=== PATIENT | male | born 1945 | race Caucasian/White ===

== ENCOUNTER 2017-02-18 07:11 | Day surgery (SDC) | payer MEDICARE, BC ==
[~2017-02-18 07:11] MED LIST: Acetaminophen TAB* 325 MG PO PRN; Buffered Lidocaine 1% SYRIN* 5 ML/SYR SYRINGE INTRADERM ONE
[2017-02-18] MEDS ORDERED: fentaNYL* 50 MCG/ML 2 ML VIAL (100 MCG VIAL) ONE (08:53)
[2017-02-18] MEDS ORDERED: Midazolam* 1 MG/ML 2 ML VIAL (2 MG) ONE ×2 (08:53→09:35)
[2017-02-18 10:02] VITALS: BP 153/70
[2017-02-18] MEDS ORDERED: Cyclopentolate 1% OPTH.SOL* 2 ML BTL ONE (12:13)
[2017-02-18] MEDS ORDERED: Lidocaine 1% MPF* 2 ML VIAL ONE (12:13)
[2017-02-18] MEDS ORDERED: acetaZOLAMIDE TAB* 250 MG ONE (12:13)
[2017-02-18] MEDS ORDERED: Flurbiprofen 0.03% OPTH.SOL* 2.5 ML BTL ONE (12:13)
[2017-02-18] MEDS ORDERED: Povidone Iodine 5% OPTH* 30 ML BTL ONE (12:14)
[2017-02-18] MEDS ORDERED: Lidocaine 2% EPI 1:200000 MPF* 20 ML VIAL ONE (12:14)
[2017-02-18] MEDS ORDERED: Phenylephrine 2.5% OPTH.SOL* 2 ML BTL ONE (12:14)
[2017-02-18] MEDS ORDERED: Neomycin/Polymy/Dex OPTH.SUSP* MAXITROL 0.1% 5 ML ONE (12:14)
[2017-02-18] MEDS ORDERED: Proparacaine 0.5% OPHTH.SOL* 15 ML BTL ONE (12:14)
--- NOTE | 2017-02-18 13:53 | OP ---
OPERATIVE NOTE: DATE OF OPERATION: 02/18/17 DATE OF : 49 SURGEON: Dominguez Gipson MD PREOPERATIVE DIAGNOSIS: Cataract, right eye. POSTOPERATIVE DIAGNOSIS: Cataract, right eye. OPERATIVE PROCEDURE: Phacoemulsification, right eye with IOL. PROCEDURE: The patient was brought to the operating room after being given 1/2% Alcaine with epinep hrine drops in the preoperative area. The eye was prepped and draped in the usual sterile fashion. Sterile drape and eyelid speculum were placed. Again, topical 1/2% Alcaine with epinephrine was giv en. A paracentesis incision was made at the 9 o'clock position with the No.75 blade. Clear cornea incision 2.2 x 2.2-mm was created at the 12 o'clock position starting at the anterior limbus using t he 2.2-mm keratome. The anterior chamber was irrigated with 0.4 mL of 1% non-preservative intracame ral lidocaine and filled with DisCoVisc. A capsulorrhexis was completed using the cystotome and the Utrata forceps. Hydrodissection was performed with balanced salt solution. The lens nucleus was re moved with the Phacoemulsification handpiece without incident. Cortex was removed with the irrigati on-aspiration handpiece. The capsular bag was re-inflated using DisCoVisc and an [id number] 17-diopter implant was inserted with the shooter. The irrigation-aspiration handpiece was used to remove all re sidual DisCoVisc. The eye was refilled with balanced salt solution and the wound checked and found to be watertight. Topical Maxitrol drops were given. [id number]/[facility] #: [id number]
== END 2017-02-18 10:11 | disposition home or self-care (01) ==
LOC: OREAST 07:11
PROVIDERS: ATTEND Specialist
DX: H25.811 Combined forms of age-related cataract, right eye (principal); E10.9 Type 1 diabetes mellitus without complications; K21.9 Gastro-esophageal reflux disease without esophagitis; M81.0 Age-related osteoporosis without current pathological fracture; F31.9 Bipolar disorder, unspecified; E78.00 Pure hypercholesterolemia, unspecified; F41.9 Anxiety disorder, unspecified; Z87.891 Personal history of nicotine dependence
CPT/HCPCS: A9270-GY; J2250; J3010; V2632

== ENCOUNTER 2018-08-14 18:35 | Inpatient (IN) | payer MEDICARE, BC ==
--- OUTSIDE RECORDS SUMMARY | 2018-08-14 19:03 | XMS REPORT | Continuity of Care Document ---
:1945 External Reference #:[id number] Author Name Diann Carrizales O.D. Address [address] [place] [address] Care Team Providers Name Role Phone Jesús Lin M.D. 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 Active mellitus Note: Onset: 12/20/2015 Gastroesophageal reflux disease Dominguez Gipson M.D. 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 Active Onset: 12/20/2015 Anxiety Dominguez Gipson M.D. Active Onset: 12/20/2015 Depressive disorder Dominguez Gipson M.D. Active Onset: 12/20/2015 Combined form of senile cataract Dominguez Gipson M.D. 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 Atorvastatin Active Tablets 40mg Law, Calcium Tamela Espinosa Diltiazem HCL ER Active Caps ER 120mg Unknown Coated Beads / 24HR Humalog Active Solution 100Unit/M Unknown /0000 L Viagra Active Tablets 100mg Unknown /0000 Methylphenidate Active Tablets 20mg Unknown HCL /0000 Olanzapine Active Tablets 5mg Take One Unknown /0000 Tablet By Mouth AT Bedtime as Needed Ziprasidone HCL Active Capsules 60mg Take One Unknown /0000 Capsule By Mouth Twice A Day Androgel Pump Active Gel 20.25mg/A Unknown /0000 ct (1.62%) Bupropion HCL ER Active Tablets ER 300mg Take One Unknown (XL) /0000 24HR Tablet By Mouth Every Morning as Directed Multi Vitamin 00 Active Tablets Unknown Daily /0000 Januvia Active Tablets 50mg Take One Unknown /0000 Tablet By Mouth Every Day Hydrochlorothiazid Active Tablets 25mg Unknown e /0000 Ciprofloxacin HCL 02/10 Hx Solution 0.3% 5ml instill Dominguez Jara Patricia one drop Claudia Gipson in the M.D. 03/01 right eye /2016 three times a day, start the day before surgery Ilevro 02/10 Hx Suspension 0.3% 3ml 1 drop Dominguez Jara Right eye Mooo, - daily M.D. 05/02 Prednisolone 02/10 Hx Suspension 1% 10ml 1 drop Dominguez Jara Right eye Arleo, - daily M.D. 04/30 Hydrocodone-Acetam Hx Tablets 5-325mg Unknown inophen /0000 - 08/30 Fluoxetine HCL Hx Capsules 20mg Unknown /0000 - 07/12 Immunizations Description No Information Available Vital Signs Description No Information Available Results Description No Information Available Procedures Date Code Description Status 09/01/2017 17042 Scanning Computerized Opthalmic Diagnostic Posterior Seg Completed Retina 09/01/2017 75392 Est Patient Intermediate Exam Completed 02/18/2017 13341 Extracapsular Cataract Extraction W/Intraocular Lens Completed 02/10/2017 20835 Ophthalmic Biometry Completed 02/10/2017 74132 Scanning Computerized Opthalmic Diagnostic Posterior Seg Completed Retina 02/06/2017 83429 Est Patient Comprehensive Exam Completed 07/15/2016 47082 Scanning Computerized Opthalmic Diagnostic Posterior Seg Completed Retina 07/15/2016 00452 Est Patient Comprehensive Exam Completed 12/20/2015 77556 Scanning Computerized Opthalmic Diagnostic Posterior Seg Completed Retina 12/20/2015 53169 Est Patient Comprehensive Exam Completed 12/04/2014 14438 Scanning Computerized Opthalmic Diagnostic Posterior Seg Completed Retina 12/04/2014 96565 Est Patient Comprehensive Exam Completed 05/16/2014 04490 Est Patient Comprehensive Exam Completed 05/16/2014 86050 Determination Of Refractive State Completed 10/31/2013 97095 Scanning Computerized Opthalmic Diagnostic Posterior Seg Completed Retina 10/31/2013 37520 Est Patient Comprehensive Exam Completed 10/01/2012 63310 Scanning Computerized Opthalmic Diagnostic Posterior Seg Completed Retina 10/01/2012 04350 Est Patient Comprehensive Exam Completed 09/12/2011 18792 Scanning Computerized Opthalmic Diagnostic Posterior Seg Completed Retina 09/12/2011 07090 Est Patient Comprehensive Exam Completed 02/05/2011 89835 Est Patient Intermediate Exam Completed 07/25/2010 90590 Scanning Laser W/Interp And Report Completed 07/25/2010 92781 Determination Of Refractive State Completed 07/25/2010 19508 Est Patient Comprehensive Exam Completed 12/24/2009 54113 Visual Field Exam Extended Completed 12/17/2009 05081 Est Patient Comprehensive Exam Completed 12/17/2009 04051 Determination Of Refractive State Completed 12/17/2009 86387 Fundus Photography With Interpretation And Report Completed 06/12/2009 92027 Scanning Laser W/Interp And Report Completed 06/12/2009 10566 Determination Of Refractive State Completed 06/12/2009 26825 Est Patient Intermediate Exam Completed 12/07/2008 32183 Fundus Photography With Interpretation And Report Completed 12/07/2008 50463 Determination Of Refractive State Completed 12/07/2008 66271 Est Patient Comprehensive Exam Completed 06/09/2008 94623 Scanning Laser W/Interp And Report Completed 06/09/2008 96010 Est Patient Intermediate Exam Completed 11/24/2007 32541 Determination Of Refractive State Completed 11/24/2007 29285 Est Patient Intermediate Exam Completed 07/09/2007 54643 Est Patient Intermediate Exam Completed 07/09/2007 76677 Scanning Laser W/Interp And Report Completed 03/09/2007 66220 Est Patient Comprehensive Exam Completed 10/13/2006 53605 Est Patient Intermediate Exam Completed 05/28/2006 98513 Fundus Photography With Interpretation And Report Completed 05/28/2006 04468 Est Patient Intermediate Exam Completed 12/26/2005 71346 Rescheduled Appointment Completed 07/01/2005 54732 Est Patient Comprehensive Exam Completed 12/27/2004 56997 Determination Of Refractive State Completed 12/27/2004 76978 Est Patient Intermediate Exam Completed 06/14/2004 01222 Determination Of Refractive State Completed 06/14/2004 87113 Est Patient Comprehensive Exam Completed 04/26/2004 93303 Est Patient Intermediate Exam Completed 12/19/2003 51373 Patient No Show For Appt Completed Encounters Type Date Location Provider Dx Diagnosis Office Visit 02/10/2017 Dominguez Rodriguez, H25.811 Combined forms of 12:45p , isabelle Rapp age-related cataract, right eye E10.3293 Type 1 diab with mild nonp rtnop without macular edema, bi Z96.1 Presence of intraocular lens Office Visit 12/29/2005 2:15p Dominguez Jara 250.50 Diabetes Marina/ MD Leonela, isabelle Gipson M.D. Ophthalmic Manifestations Type II Controlled 362.01 Background Diabetic Retinopathy Plan of Treatment Future Appointment(s):09/03/2018 1:00 pm - Dominguez Gipson M.D. at Dominguez Gipson MD, pc109/29/2017 - Diann Carrizales O.D.H43.813 Vitreous degeneration , bilateralComments:Smoking can increase the risk of developing or worsening any eye related disease, as well as affect your overall health. If you are a smoker, we strongly recommend that you quit.If you are not a smoker, we strongly recommend that you do not start. You have a Posterior Vitreous Detachment. Please read the pamphlet that was given to you. If you have any changes in your floaters or flashing lights, please contact this office.Follow up:09/03/2018 as sched w/ RA and pvd check/ OCT Mac You can expect to have your eyes dilated at your next visit. If Dr. Carrizales orders any additional testing, it may require extra time. We recommend that you bring sunglasses, as dilation drops often make you light sensitive until they wear off. We always recommend you bring someone to drive you home if you are uncomfortable driving with your eyes dilated. 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
[2018-08-14] MEDS ORDERED: NS 0.9% 1000 ML*IV.FLUID IV ONE (19:12)
[2018-08-14 21:06] LABS: ABS Basophils 0.1 10^3/ul (0-0.2); ABS Eosinophils 0 10^3/ul (0-0.6); ABS Lymphocytes 1.3 10^3/ul (1.0-4.8); ABS Monocytes 1.1 10^3/ul (0-0.8); ABS Neutrophils 12.6 10^3/ul (1.5-7.7); ABS Nucleated RBC 0 10^3/ul; Eosinophil % 0 % (0-6); Hematocrit 37 % (42-52); Hemoglobin 12.4 g/dl (14.0-18.0); Lymphocyte % 8.3 % (25-47); Mean Corpuscular HGB Conc 34 g/dl (31-36); Mean Corpuscular Hemoglobin 30 pg (27-31); Mean Corpuscular Volume 89 fL (80-94); Mean Platelet Volume 8.6 fL (7.4-10.4); Nucleated Red Blood Cells % 0; Platelet Count 198 10^3/ul (150-450); Red Blood Count 4.13 10^6/ul (4.00-5.40); Red Cell Distribution Width 14 % (10.5-15); White Blood Count 15.1 10^3/ul (3.5-10.8)
[2018-08-14 21:17] LABS: INR 1.1 (0.77-1.02)
[2018-08-14 21:23] LABS: EGFR Non-African American 30.2 (>60)
--- NOTE | 2018-08-14 22:57 | ED ---
Complex/Multi-Sys Presentation - HPI Summary HPI Summary: This patient is a 72 year [facility] with a chief complaint of fever, body aches, nausea and generalized weakness today. Patient was referred to ED by Dr. Betancourt, s/p prostate biopsy performed on 08/10/18. Fever reported at 101F. Pain is 4/10 in severity upon triage. Patient reports small amount of blood in urine from biopsy. Patient denies abdominal pain and SOB. PMHx of IDDM. - History Of Current Complaint Chief Complaint: EDFluSymptoms Time Seen by Provider: 08/14/18 22:52 Hx Obtained From: Patient Onset/Duration: Lasting Hours Timing: Constant Location: Pain At: - diffuse Associated Signs And Symptoms: Positive: Weakness, Fever, Other - body aches Related History: Other - prostate biopsy - Allergies/Home Medications Allergies/Adverse Reactions: Allergies Allergy/AdvReac Type Severity Reaction Status Date / Time aspirin Allergy Unknown Verified 08/15/18 00:24 Reaction Details Home Medications: Home Medications Tamsulosin HCl [Flomax] 0.4 mg PO DAILY 08/15/18 [History Confirmed 08/15/18] dilTIAZem HCl [Cartia Xt] 240 mg PO DAILY 08/15/18 [History Confirmed 08/15/18] hydroCHLOROthiazide [Hydrochlorothiazide] 1 cap PO DAILY 08/15/18 [History Confirmed 08/15/18] PMH/Surg Hx/FS Hx/Imm Hx Endocrine/Hematology History: Reports: Hx Diabetes - type 1 with insulin pump, Hx Anemia - slightly Cardiovascular History: Reports: Hx Hypertension, Other Cardiovascular Problems/ Disorders - high cholesterol GI History: Reports: Hx Gastroesophageal Reflux Disease History: Reports: Other Problems/Disorders - left nephrectomy 2008 Sensory History: Reports: Hx Cataracts - right eye, Hx Contacts or Glasses - glasses Denies: Hx Hearing Aid Opthamlomology History: Reports: Hx Cataracts - right eye, Hx Contacts or Glasses - glasses Neurological History: Reports: Other Neuro Impairments/Disorders - peripheral neuropathy Psychiatric History: Reports: Hx Anxiety, Hx Depression - Bipolar disorder - Cancer History Hx Chemotherapy: No - Surgical History Surgery Procedure, Year, and Place: tonsillectomy. right hand ganglion cyst removal 2003. right hip replacement 01/2006. left hip replacement 02/2013. left nephrectomy 07/2009. left hand trigger finger x3 01/2007 Hx Anesthesia Reactions: Yes - 2012- had difficulty coming out of anesthesia [facility] Infectious Disease History: No Infectious Disease History: Denies: Traveled Outside the [place] in Last 30 Days - Family History Known Family History: Positive: Hypertension - Social History Alcohol Use: None Substance Use Type: Reports: None Smoking Status (MU): Former Smoker Amount Used/How Often: smoked 20 years, 1/2 ppd or less Review of Systems Positive: Fever, Chills, Other - body aches Positive: Nausea Positive: hematuria All Other Systems Reviewed And Are Negative: Yes Physical Exam - Summary Physical Exam Summary: Appearance: Well-appearing, Well-nourished, lying in bed comfortably Skin: Warm, dry, no obvious rash Eyes: sclera anicteric, no conjunctival pallor ENT: mucous membranes moist, pharynx appears normal Neck: Supple, nontender Respiratory: Clear to auscultation, no signs of respiratory distress Cardiovascular: Normal S1, S2. No murmurs. Normal distal pulses in tibial and radial bilaterally. Abdomen: Soft, nontender, normal active bowel sounds present Musculoskeletal: Normal, Strength/ROM Intact Neurological: A&Ox3, awake and alert, mentation is normal, speech is fluent and appropriate Psychiatric: affect is normal, does not appear anxious or depressed Triage Information Reviewed: Yes Vital Signs On Initial Exam: Initial Vitals Temp Pulse Resp BP Pulse Ox 99.9 F 96 16 171/69 97 08/14/18 18:42 08/14/18 18:42 08/14/18 18:42 08/14/18 18:42 08/14/18 18:42 Vital Signs Reviewed: Yes Diagnostics - Vital Signs Vital Signs Temp Pulse Resp BP Pulse Ox 08/14/18 22:48 96 08/14/18 22:46 77 132/56 95 08/14/18 20:46 99.6 F 99 18 169/88 96 08/14/18 18:42 99.9 F 96 16 171/69 97 - Laboratory Lab Results: Lab Results 08/14/18 08/14/18 08/14/18 Range/Units 20:59 20:59 20:59 WBC 15.1 H (3.5-10.8) 10^3/ul RBC 4.13 (4.00-5.40) 10^6/ul Hgb 12.4 L (14.0-18.0) g/dl Hct 37 L (42-52) % MCV 89 (80-94) fL MCH 30 (27-31) pg MCHC 34 (31-36) g/dl RDW 14 (10.5-15) % Plt Count 198 (150-450) 10^3/ul MPV 8.6 (7.4-10.4) fL Neut % (Auto) 83.7 H (38-83) % Lymph % (Auto) 8.3 L (25-47) % Dubois % (Auto) 7.5 H (0-7) % Eos % (Auto) 0 (0-6) % Baso % (Auto) 0.5 (0-2) % Absolute Neuts (auto) 12.6 H (1.5-7.7) 10^3/ul Absolute Lymphs (auto) 1.3 (1.0-4.8) 10^3/ul Absolute Monos (auto) 1.1 H (0-0.8) 10^3/ul Absolute Eos (auto) 0 (0-0.6) 10^3/ul Absolute Basos (auto) 0.1 (0-0.2) 10^3/ul Absolute Nucleated RBC 0 10^3/ul Nucleated RBC % 0 INR (Anticoag Therapy) (0.77-1.02) Sodium 128 L (135-145) mmol/L Potassium 3.5 (3.5-5.0) mmol/L Chloride 92 L (101-111) mmol/L Carbon Dioxide 27 (22-32) mmol/L Anion Gap 9 (2-11) mmol/L BUN 31 H (6-24) mg/dL Creatinine 2.17 H (0.67-1.17) mg/dL Est GFR ( Amer) 36.6 (>60) Est GFR (Non-Af Amer) 30.2 (>60) BUN/Creatinine Ratio 14.3 (8-20) Glucose 340 H (70-100) mg/dL Lactic Acid 1.2 (0.5-2.0) mmol/L Calcium 9.6 (8.6-10.3) mg/dL Total Bilirubin 0.80 (0.2-1.0) mg/dL AST 31 (13-39) U/L ALT 36 (7-52) U/L Alkaline Phosphatase 72 (34-104) U/L Total Protein 6.9 (6.4-8.9) g/dL Albumin 3.9 (3.2-5.2) g/dL Globulin 3.0 (2-4) g/dL Albumin/Globulin Ratio 1.3 (1-3) 11/24/18 Range/Units 21:00 WBC (3.5-10.8) 10^3/ul RBC (4.00-5.40) 10^6/ul Hgb (14.0-18.0) g/dl Hct (42-52) % MCV (80-94) fL MCH (27-31) pg MCHC (31-36) g/dl RDW (10.5-15) % Plt Count (150-450) 10^3/ul MPV (7.4-10.4) fL Neut % (Auto) (38-83) % Lymph % (Auto) (25-47) % Dubois % (Auto) (0-7) % Eos % (Auto) (0-6) % Baso % (Auto) (0-2) % Absolute Neuts (auto) (1.5-7.7) 10^3/ul Absolute Lymphs (auto) (1.0-4.8) 10^3/ul Absolute Monos (auto) (0-0.8) 10^3/ul Absolute Eos (auto) (0-0.6) 10^3/ul Absolute Basos (auto) (0-0.2) 10^3/ul Absolute Nucleated RBC 10^3/ul Nucleated RBC % INR (Anticoag Therapy) 1.10 H (0.77-1.02) Sodium (135-145) mmol/L Potassium (3.5-5.0) mmol/L Chloride (101-111) mmol/L Carbon Dioxide (22-32) mmol/L Anion Gap (2-11) mmol/L BUN (6-24) mg/dL Creatinine (0.67-1.17) mg/dL Est GFR ( Amer) (>60) Est GFR (Non-Af Amer) (>60) BUN/Creatinine Ratio (8-20) Glucose (70-100) mg/dL Lactic Acid (0.5-2.0) mmol/L Calcium (8.6-10.3) mg/dL Total Bilirubin (0.2-1.0) mg/dL AST (13-39) U/L ALT (7-52) U/L Alkaline Phosphatase (34-104) U/L Total Protein (6.4-8.9) g/dL Albumin (3.2-5.2) g/dL Globulin (2-4) g/dL Albumin/Globulin Ratio (1-3) Result Diagrams: 08/15/18 05:03 08/15/18 05:03 Lab Statement: Any lab studies that have been ordered have been reviewed, and results considered in the medical decision making process. Complex Multi-Symp Course/Dx Course Of Treatment: 72 year old M presenting with fever, body aches, nausea and generalized weakness today. Patient was referred to ED by Dr. Betancourt, s/p prostate biopsy performed on 08/10/18. Fever reported at 101F. [2304] Case discussed with Dr. Betancourt, urology, who recommends admission by hospitalist and to obtain blood cultures prior to abx. Bloodwork reveals an elevated WBC of 15.1. UA is indicative of UTI. Patient is given IVF and Piperacillin. [2343 ] Case discussed with Dr. Peña, hospitalist, who agrees to admit. - Diagnoses Provider Diagnoses: UTI (urinary tract infection), Fever - Physician Notifications Discussed Care Of Patient With: Elijah Betancourt - urology Time Discussed With Above Provider: 23:04 Instructed by Provider To: Other - recommends admission by hospitatlist and to get blood cultures prior to abx Discharge - Sign-Out/Discharge Documenting (check all that apply): Patient Departure - admit - Discharge Plan Condition: Good Disposition: ADMITTED TO [facility] - Billing Disposition and Condition Condition: GOOD Disposition: Admitted to [facility] - Attestation Statements Document Initiated by Scribe: Yes Documenting Scribe: Maria De Jesus Gannon Provider For Whom Alex is Documenting (Include Credential): Kobe Zaldivar MD Scribe Attestation: Maria De Jesus Mo, scribed for Kobe Zaldivar MD on 08/15/18 at 2124. Scribe Documentation Reviewed: Yes Provider Attestation: The documentation as recorded by the scribe, Maria De Jesus Roetzer accurately reflects the service I personally performed and the decisions made by me, Kobe Zaldivar MD
[2018-08-14] MEDS ORDERED: Piperacillin/Tazobac ADVAN(*) 3.375 GM in NS 0.9% 100 ML* 100 ML IVPB ONE (23:15)
[2018-08-14 23:21] LABS: Urine Appearance Cloudy; Urine Blood 3+ (Negative); Urine Color Yellow; Urine Ketones Negative (Negative); Urine Protein Negative (Negative); Urine Red Blood Cell 3+(>10/hpf) (Absent); Urine Specific Gravity 1.015 (1.010-1.030); Urine Urobilinogen Negative (Negative); Urine White Blood Cell 3+(>20/hpf) (Absent)
[2018-08-14] MEDS ORDERED: HYDROcodone/ACETAMIN 5-325 MG* 1 TAB PO PRN (23:58)
[2018-08-14] MEDS ORDERED: OLANzapine TAB* 5 MG PO PRN (23:58)
[2018-08-15] MEDS ORDERED: Dextrose 50% Syringe 50 ML* 25 GM/50 ML SYRINGE IV PUSH PRN (00:02)
[2018-08-15] MEDS: NS 0.9% 1000 ML* 1,000 ML IV SCH ×3 (02:10→21:41)
[2018-08-15] MEDS: Piperacillin/Tazobac ADVAN(*) 3.375 GM in NS 0.9% 100 ML* 100 ML IVPB SCH ×3 (03:37→19:43)
[2018-08-15 05:18] LABS: ABS Basophils 0 10^3/ul (0-0.2); ABS Eosinophils 0 10^3/ul (0-0.6); ABS Lymphocytes 1.5 10^3/ul (1.0-4.8); ABS Monocytes 1.3 10^3/ul (0-0.8); ABS Nucleated RBC 0 10^3/ul; Eosinophil % 0.2 % (0-6); Hematocrit 35 % (42-52); Hemoglobin 11.7 g/dl (14.0-18.0); Mean Corpuscular HGB Conc 33 g/dl (31-36); Mean Corpuscular Hemoglobin 30 pg (27-31); Mean Corpuscular Volume 90 fL (80-94); Mean Platelet Volume 8.8 fL (7.4-10.4); Nucleated Red Blood Cells % 0; Platelet Count 169 10^3/ul (150-450); Red Blood Count 3.92 10^6/ul (4.00-5.40); Red Cell Distribution Width 14 % (10.5-15); White Blood Count 13.9 10^3/ul (3.5-10.8)
[2018-08-15 05:39] LABS: EGFR Non-African American 31.4 (>60)
[2018-08-15] MEDS: Heparin VIAL(*) 5000 UNITS/ML VIAL (FIVE THOUSAND) SUBCUT SCH ×3 (06:05→21:43)
--- NOTE | 2018-08-15 06:10 | ADMNOTE ---
Subjective Date of Service: 08/14/18 Interval History: code status full this is admission h/p hpi this is a 72 yr old wm with hx of bph with elevated psa 8-9 s/p prostate biopsy last was sent in by gu after he called and complained fever spike to 101 shaking chills diffuse body/joint ache flu like symptoms for the past 1.5 days-- -> was instructed to come in for eval by gu over the phone. 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 no htn/dm/cva/cad as well as family hx of prostate cancer Review of Systems - Measurements Intake and Output: Intake and Output Last 24 Hours 08/12/18 08/13/18 08/14/18 08/15/18 06:59 06:59 06:59 06:59 Intake Total 100 Output Total 300 Balance -200 Weight 220 lb Intake: IV Fluids 100 Output: Urine 300 - Review of Systems General Comments: pertinent as per hpi Objective Active Medications: Hydrocodone Bitart/Acetaminophen ([place] 5-325 Tab*) 1 tab PO Q4H PRN PRN Reason: PAIN Atorvastatin Calcium (Lipitor*) 40 mg PO QPM DINAH Bupropion HCl (Bupropion Xl*) 300 mg PO DAILY [facility] Dextrose (D50w Syringe 50 Ml*) 12.5 gm IV PUSH .FOR FS < 60 - SS PRN PRN Reason: FS < 60 Diltiazem HCl (Cardizem Cd Cap*) 120 mg PO DAILY [facility] Heparin Sodium (Porcine) (Heparin Vial(*)) 5,000 units SUBCUT Q8HR [facility] Sodium Chloride (Ns 0.9% 1000 Ml*) 1,000 mls @ 100 mls/hr IV PER RATE [facility] Last Admin: 08/15/18 02:10 Dose: 100 mls/hr Piperacillin Sod/Tazobactam (Sod 3.375 gm/ Sodium Chloride) 100 mls @ 25 mls/ hr IVPB Q8H [facility] Last Admin: 08/15/18 03:37 Dose: 25 mls/hr Influenza Virus Vaccine (Fluarix *Quad* *) 0.5 ml IM .ONCE ONE Stop: 08/15/18 09:01 Methylphenidate HCl (Ritalin Tab*) 20 mg PO QID [facility] Non-Formulary Medication (Testosterone [Androgel]) 3 applic TD DAILY [facility] Olanzapine (Zyprexa Tab*) 5 mg PO DAILY PRN PRN Reason: depression Sitagliptin Phosphate (Januvia (Nf)) 50 mg PO DAILY [facility] Ziprasidone (Geodon (Generic) *) 60 mg PO DAILY [facility] Vital Signs - 8 hr 08/14/18 08/14/18 08/14/18 22:46 22:48 23:33 Temperature Pulse Rate 77 Respiratory Rate Blood Pressure 132/56 130/59 (mmHg) O2 Sat by Pulse 95 96 Oximetry 08/14/18 08/14/18 08/15/18 23:40 23:41 00:00 Temperature 99.7 F Pulse Rate 75 72 68 Respiratory 12 Rate Blood Pressure 130/59 (mmHg) O2 Sat by Pulse 96 96 95 Oximetry 08/15/18 08/15/18 08/15/18 00:12 01:00 01:28 Temperature 98.8 F Pulse Rate 73 79 70 Respiratory 12 Rate Blood Pressure 130/59 (mmHg) O2 Sat by Pulse 95 97 98 Oximetry 08/15/18 08/15/18 08/15/18 01:38 01:48 03:20 Temperature 97.8 F 97.8 F Pulse Rate 69 80 Respiratory 18 18 16 Rate Blood Pressure 151/64 163/60 (mmHg) O2 Sat by Pulse 99 100 Oximetry Oxygen Devices in Use Now: None Appearance: nad Eyes: No Scleral Icterus, PERRLA Ears/Nose/Mouth/Throat: NL Teeth, Lips, Gums, Clear Oropharnyx, Mucous Membranes Moist Neck: NL Appearance and Movements; NL JVP, Trachea Midline, No Thyroid Enlargement, Masses Respiratory: Symmetrical Chest Expansion and Respiratory Effort, Clear to Auscultation Cardiovascular: NL Sounds; No Murmurs; No JVD, RRR Abdominal: NL Sounds; No Tenderness; No Distention, No Hepatosplenomegaly, - - obese abd Extremities: No Edema, - - able to raise ue and le againt gravity Skin: No Rash or Ulcers Neurological: Alert and Oriented x 3, NL Sensation, NL Muscle Strength and Tone - ekg ns no acute st t change Result Diagrams: 08/15/18 05:03 08/15/18 05:03 Additional Lab and Data: Lab Results 08/14/18 08/14/18 08/14/18 Range/Units 20:59 20:59 20:59 WBC 15.1 H (3.5-10.8) 10^3/ul RBC 4.13 (4.00-5.40) 10^6/ul Hgb 12.4 L (14.0-18.0) g/dl Hct 37 L (42-52) % MCV 89 (80-94) fL MCH 30 (27-31) pg MCHC 34 (31-36) g/dl RDW 14 (10.5-15) % Plt Count 198 (150-450) 10^3/ul MPV 8.6 (7.4-10.4) fL Neut % (Auto) 83.7 H (38-83) % Lymph % (Auto) 8.3 L (25-47) % [place] % (Auto) 7.5 H (0-7) % Eos % (Auto) 0 (0-6) % Baso % (Auto) 0.5 (0-2) % Absolute Neuts (auto) 12.6 H (1.5-7.7) 10^3/ul Absolute Lymphs (auto) 1.3 (1.0-4.8) 10^3/ul Absolute Monos (auto) 1.1 H (0-0.8) 10^3/ul Absolute Eos (auto) 0 (0-0.6) 10^3/ul Absolute Basos (auto) 0.1 (0-0.2) 10^3/ul Absolute Nucleated RBC 0 10^3/ul Nucleated RBC % 0 INR (Anticoag Therapy) (0.77-1.02) Sodium 128 L (135-145) mmol/L Potassium 3.5 (3.5-5.0) mmol/L Chloride 92 L (101-111) mmol/L Carbon Dioxide 27 (22-32) mmol/L Anion Gap 9 (2-11) mmol/L BUN 31 H (6-24) mg/dL Creatinine 2.17 H (0.67-1.17) mg/dL Est GFR ( Amer) 36.6 (>60) Est GFR (Non-Af Amer) 30.2 (>60) BUN/Creatinine Ratio 14.3 (8-20) Glucose 340 H (70-100) mg/dL Lactic Acid 1.2 (0.5-2.0) mmol/L Calcium 9.6 (8.6-10.3) mg/dL Total Bilirubin 0.80 (0.2-1.0) mg/dL AST 31 (13-39) U/L ALT 36 (7-52) U/L Alkaline Phosphatase 72 (34-104) U/L Total Protein 6.9 (6.4-8.9) g/dL Albumin 3.9 (3.2-5.2) g/dL Globulin 3.0 (2-4) g/dL Albumin/Globulin Ratio 1.3 (1-3) 08/14/18 Range/Units 21:00 WBC (3.5-10.8) 10^3/ul RBC (4.00-5.40) 10^6/ul Hgb (14.0-18.0) g/dl Hct (42-52) % MCV (80-94) fL MCH (27-31) pg MCHC (31-36) g/dl RDW (10.5-15) % Plt Count (150-450) 10^3/ul MPV (7.4-10.4) fL Neut % (Auto) (38-83) % Lymph % (Auto) (25-47) % [place] % (Auto) (0-7) % Eos % (Auto) (0-6) % Baso % (Auto) (0-2) % Absolute Neuts (auto) (1.5-7.7) 10^3/ul Absolute Lymphs (auto) (1.0-4.8) 10^3/ul Absolute Monos (auto) (0-0.8) 10^3/ul Absolute Eos (auto) (0-0.6) 10^3/ul Absolute Basos (auto) (0-0.2) 10^3/ul Absolute Nucleated RBC 10^3/ul Nucleated RBC % INR (Anticoag Therapy) 1.10 H (0.77-1.02) Sodium (135-145) mmol/L Potassium (3.5-5.0) mmol/L Chloride (101-111) mmol/L Carbon Dioxide (22-32) mmol/L Anion Gap (2-11) mmol/L BUN (6-24) mg/dL Creatinine (0.67-1.17) mg/dL Est GFR ( Amer) (>60) Est GFR (Non-Af Amer) (>60) BUN/Creatinine Ratio (8-20) Glucose (70-100) mg/dL Lactic Acid (0.5-2.0) mmol/L Calcium (8.6-10.3) mg/dL Total Bilirubin (0.2-1.0) mg/dL AST (13-39) U/L ALT (7-52) U/L Alkaline Phosphatase (34-104) U/L Total Protein (6.4-8.9) g/dL Albumin (3.2-5.2) g/dL Globulin (2-4) g/dL Albumin/Globulin Ratio (1-3) Assess/Plan/Problems-Billing Assessment: this is a 72 yr old wm with hx of type i dm on insulin pump bph with elevated psa level 8-9 just got prostate biopsy last tue presented with flu like symptoms shaking chills body joint ache intial wbc is 15 got zosyn from er - Patient Problems (1) SIRS (systemic inflammatory response syndrome) Current Visit: Yes Status: Acute Code(s): R65.10 - SIRS OF NON-INFECTIOUS ORIGIN W/O ACUTE ORGAN DYSFUNCTION SNOMED Code(s): 380819786 Comment: zosyn while waiting for culture result ck flu a/b mrsa nare (2) UTI (urinary tract infection) Current Visit: Yes Status: Acute Comment: continue with zosyn while waiting for urine cx result (3) Type I diabetes mellitus Current Visit: Yes Status: Acute Comment: pt is on insulin pump + jenuvia continue outpt mgt ck a1c (4) Hyperlipidemia Current Visit: Yes Status: Acute Code(s): E78.5 - HYPERLIPIDEMIA, UNSPECIFIED SNOMED Code(s): 79412769 Comment: lft wnl ck lipid panel continue outpt med (5) Renal cancer Current Visit: Yes Status: Acute Comment: s/p nephrectomy moniter at this point (6) Fever Current Visit: Yes Status: Acute Code(s): R50.9 - FEVER, UNSPECIFIED SNOMED Code(s): 382954661 Comment: prn tylenol (7) Androgen deficiency Current Visit: Yes Status: Acute Code(s): E29.1 - TESTICULAR HYPOFUNCTION SNOMED Code(s): 35408881 Comment: continue testostone therapy
[2018-08-15] MEDS ORDERED: Insulin LISPRO* 1 UNITS UNIT SUBCUT SCH (07:30)
[2018-08-15] MEDS: Ziprasidone * 20 MG CAP (generic Geodon) PO SCH (08:18)
[2018-08-15] MEDS: CMCS: Sitagliptin (NF) 50 MG TAB PO SCH (08:18)
[2018-08-15] MEDS: Methylphenidate TAB* 10 MG PO SCH ×4 (08:19→18:31)
[2018-08-15] MEDS: BuPROPion XL* 300 MG TAB.XL PO SCH (08:19)
[2018-08-15] MEDS: Diltiazem CD CAP* 240 MG PO SCH (08:19)
[2018-08-15] MEDS ORDERED: Tamsulosin CAP* 0.4 MG PO SCH ×2 (09:00→21:00)
[2018-08-15] MEDS ORDERED: TESTOSTERONE TD SCH (09:00)
[2018-08-15] MEDS ORDERED: Diltiazem CD CAP* 120 MG PO SCH (09:00)
[2018-08-15 09:11] LABS: EGFR Non-African American 30.1 (>60)
--- NOTE | 2018-08-15 10:32 | PN ---
Subjective - Subjective Reason for Note: Progress Note History: I have reviewed with the patient, the electronic medical record and with Dr. Elijah Betancourt his presentation. He has a single kidney and diabetic nephropathy. He has a raised PSA and had a prostate bx 08/10/2018 - covered with levofloxacin and gentamicin. On 08/13/2018 he developed a fever and chills. He was admitted overnight and started on piperacillin/tazobactam. Overnight he had pain in his bladder and inability to void. He has been able to void this morning. His fever has gone overnight. He is feeling improved, though his appetite has not recovered. He has marked insulin resistance with glucose being in the 300s. Active Problems: Active Problems Acute on chronic renal failure (Acute) N17.9, N18.9 Acute prostatitis (Acute) N41.0 Fever (Acute) R50.9 prn tylenol Primary prostate adenocarcinoma (Acute) C61 SIRS (systemic inflammatory response syndrome) (Acute) R65.10 zosyn while waiting for culture result ck flu a/b mrsa nare UTI (urinary tract infection) (Acute) continue with zosyn while waiting for urine cx result Uncontrolled type 1 diabetes mellitus (Acute) E10.65 ADHD (attention deficit hyperactivity disorder) (Chronic) Androgen deficiency (Chronic) E29.1 continue testostone therapy Background diabetic retinopathy (Chronic) E11.3299 Controlled depression (Chronic) F32.9 Hyperlipidemia (Chronic) E78.5 lft wnl ck lipid panel continue outpt med Insulin pump in place (Chronic) Z96.41 Overweight (BMI 25.0-29.9) (Chronic) E66.3 PVD (peripheral vascular disease) (Chronic) I73.9 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) E10.29, R80.9 Renal cancer (Chronic) s/p nephrectomy moniter at this point Stage 3 chronic kidney disease (Chronic) N18.3 Type I diabetes mellitus (Chronic) pt is on insulin pump + jenuvia continue outpt mgt ck a1c Current Medications: Current Medications Hydrocodone Bitart/Acetaminophen ([place] 5-325 Tab*) 1 tab PO Q4H PRN PRN Reason: PAIN Atorvastatin Calcium (Lipitor*) 40 mg PO QPM [facility]IN[facility] Bupropion HCl (Bupropion Xl*) 300 mg PO DAILY [facility] Last Admin: 08/15/18 08:19 Dose: 300 mg Dextrose (D50w Syringe 50 Ml*) 12.5 gm IV PUSH .FOR FS < 60 - SS PRN PRN Reason: FS < 60 Diltiazem HCl (Cardizem Cd Cap*) 240 mg PO DAILY [facility] Last Admin: 08/15/18 08:19 Dose: 240 mg Heparin Sodium (Porcine) (Heparin Vial(*)) 5,000 units SUBCUT Q8HR [facility] Last Admin: 08/15/18 06:05 Dose: 5,000 units Sodium Chloride (Ns 0.9% 1000 Ml*) 1,000 mls @ 100 mls/hr IV PER RATE [facility] Last Admin: 08/15/18 02:10 Dose: 100 mls/hr Piperacillin Sod/Tazobactam (Sod 3.375 gm/ Sodium Chloride) 100 mls @ 25 mls/ hr IVPB Q8H [facility] Last Admin: 08/15/18 03:37 Dose: 25 mls/hr Methylphenidate HCl (Ritalin Tab*) 20 mg PO QID [facility] Last Admin: 08/15/18 08:19 Dose: 20 mg Non-Formulary Medication (Testosterone [Androgel]) 3 applic TD DAILY [facility] Olanzapine (Zyprexa Tab*) 5 mg PO DAILY PRN PRN Reason: depression Sitagliptin Phosphate (Januvia (Nf)) 50 mg PO DAILY [facility] Last Admin: 08/15/18 08:18 Dose: 50 mg Tamsulosin HCl (Flomax Cap*) 0.4 mg PO BEDTIME [facility] Ziprasidone (Geodon (Generic) *) 60 mg PO DAILY [facility] Last Admin: 08/15/18 08:18 Dose: 60 mg - Review of Systems Constitutional Symptoms: Yes: Fever, Night Sweats Dermatology: Rash: No Pulmonary: Negative: Cough, Sputum, Respiratory Distress, Shortness of Breath Cardiology: Negative: Chest Pain, Shortness of Breath, Palpitations, Swelling of Ankles Gastroenterology: Positive: Anorexia Negative: Abdominal Pain, Nausea, Vomiting, Change in Bowel Habits - BM overnight Genital - Urinary: Positive: Dysuria, Other - acute prostatitis Neurology: Negative: Headache Home Medications: Home Medications Medication Instructions Recorded Confirmed Type Atorvastatin* [Lipitor*] 40 mg PO QPM 08/21/16 08/15/18 History BuPROPion XL* [Bupropion XL*] 300 mg PO DAILY 08/21/16 08/15/18 History Insulin LISPRO* [HumaLOG*] 1 unit SUBCUT SEE INSTRUCTIONS 08/21/16 08/15/18 History Methylphenidate TAB* [Ritalin TAB*] 20 mg PO QID 08/21/16 08/15/18 History OLANzapine TAB* [ZyPREXA TAB*] 5 mg PO DAILY PRN 08/21/16 08/15/18 History Sildenafil (NF) [Viagra (NF)] 100 mg PO BID PRN 08/21/16 08/15/18 History Testosterone [Androgel] 3 applic TD DAILY 08/21/16 08/15/18 History Ziprasidone CAP* [Geodon CAP*] 60 mg PO DAILY 08/21/16 08/15/18 History Sitagliptin (NF) [Januvia (NF)] 50 mg PO DAILY 02/13/17 08/15/18 History Tamsulosin HCl [Flomax] 0.4 mg PO DAILY 08/15/18 08/15/18 History dilTIAZem HCl [Cartia Xt] 240 mg PO DAILY 08/15/18 08/15/18 History hydroCHLOROthiazide 1 cap PO DAILY 08/15/18 08/15/18 History [Hydrochlorothiazide] Allergies: Allergies Allergy/AdvReac Type Severity Reaction Status Date / Time aspirin Allergy Unknown Verified 08/15/18 00:24 Reaction Details Objective - Vital Signs Vital Signs: Vital Signs 08/14/18 08/14/18 08/14/18 18:42 20:46 22:46 Temperature 99.9 F 99.6 F Pulse Rate 96 99 77 Respiratory 16 18 Rate Blood Pressure 171/69 169/88 132/56 (mmHg) O2 Sat by Pulse 97 96 95 Oximetry 08/14/18 08/14/18 08/14/18 22:48 23:33 23:40 Temperature 99.7 F Pulse Rate 75 Respiratory 12 Rate Blood Pressure 130/59 130/59 (mmHg) O2 Sat by Pulse 96 96 Oximetry 08/14/18 08/15/18 08/15/18 23:41 00:00 00:12 Temperature Pulse Rate 72 68 73 Respiratory Rate Blood Pressure (mmHg) O2 Sat by Pulse 96 95 95 Oximetry 08/15/18 08/15/18 08/15/18 01:00 01:28 01:38 Temperature 98.8 F 97.8 F Pulse Rate 79 70 69 Respiratory 12 18 Rate Blood Pressure 130/59 151/64 (mmHg) O2 Sat by Pulse 97 98 99 Oximetry 08/15/18 08/15/18 08/15/18 01:48 03:20 07:59 Temperature 97.8 F 99.8 F Pulse Rate 80 53 Respiratory 18 16 16 Rate Blood Pressure 163/60 164/80 (mmHg) O2 Sat by Pulse 100 97 Oximetry 08/15/18 08:00 Temperature Pulse Rate Respiratory 16 Rate Blood Pressure (mmHg) O2 Sat by Pulse 97 Oximetry - Intake and Output Intake and Output: Intake & Output 08/12/18 08/13/18 08/14/18 08/15/18 11:59 11:59 11:59 11:59 Intake Total 400 Output Total 300 Balance 100 Weight 220 lb Intake: IV Fluids 100 IVPB 100 ABX - ZOSYN 100 Oral 200 Output: Urine 300 ADLs: Meal Record Start: 08/15/18 00: 44 Freq: Status: Active Protocol: Created 08/15/18 00:44 System (Rec: 08/15/18 00:44 System [id number]) Document 08/15/18 09:49 [id number] (Rec: 08/15/18 09:50 [id number]) Intake and Output Start: 08/14/18 18: 46 Freq: Status: Active Protocol: Created 08/14/18 18:46 System (Rec: 08/14/18 18:46 System [id number]) Intake and Output Start: 08/15/18 00: 44 Freq: DAILY@0600,1400,2200 Status: Active Protocol: Created 08/15/18 00:44 System (Rec: 08/15/18 00:44 System [id number]) Document 08/15/18 03:28 [id number] (Rec: 08/15/18 03:28 [id number]) - Physical Exam General Physical Exam Comment: Warm and well perfused, in no acute distress. He has a tachycardia, but is otherwise hemodynamically stable. Feet - no ulcers , callouses or infections General: No Cyanosis, No Anemia, No Jaundice, No Clubbing Skin: Normal: Rash Lungs and Chest: Yes: Chest Expansion Full, Chest Expansion Symetrica, Percussion Note Resonant, Vessicular Breath Sounds. No: Crackles, Wheezes Heart Rate and Rhythm: Regular JVP: Not Elevated Additional Cardiovascular: Yes: Normal Heart Sounds. No: Heart Murmur, Pedal Edema Abdominal Exam: Yes: Soft, Abdominal Tenderness - suprapubic and iliac regions, Bowel Sounds Present. No: Distention, Abdominal Mass, Hepatomegaly, Guarding, Rebound Tenderness - Extremities Cranial Nerves II-XII Intact: Yes Limbs: Normal Power - Neuro Orientation: A/O x3 Speech: Normal Results - Results Lab Results: Laboratory Results - last 24 hr 08/14/18 08/14/18 08/14/18 20:59 20:59 20:59 WBC 15.1 H RBC 4.13 Hgb 12.4 L Hct 37 L MCV 89 MCH 30 MCHC 34 RDW 14 Plt Count 198 MPV 8.6 Neut % (Auto) 83.7 H Lymph % (Auto) 8.3 L [place] % (Auto) 7.5 H Eos % (Auto) 0 Baso % (Auto) 0.5 Absolute Neuts (auto) 12.6 H Absolute Lymphs (auto) 1.3 Absolute Monos (auto) 1.1 H Absolute Eos (auto) 0 Absolute Basos (auto) 0.1 Absolute Nucleated RBC 0 Nucleated RBC % 0 INR (Anticoag Therapy) APTT Sodium 128 L Potassium 3.5 Chloride 92 L Carbon Dioxide 27 Anion Gap 9 BUN 31 H Creatinine 2.17 H Est GFR ( Amer) 36.6 Est GFR (Non-Af Amer) 30.2 BUN/Creatinine Ratio 14.3 Glucose 340 H Hemoglobin A1c Lactic Acid 1.2 Calcium 9.6 Total Bilirubin 0.80 AST 31 ALT 36 Alkaline Phosphatase 72 Total Protein 6.9 Albumin 3.9 Globulin 3.0 Albumin/Globulin Ratio 1.3 Triglycerides Cholesterol LDL Cholesterol HDL Cholesterol Urine Color Urine Appearance Urine pH Ur Specific [place] Urine Protein Urine Ketones Urine Blood Urine Nitrate Urine Bilirubin Urine Urobilinogen Ur Leukocyte Esterase Urine WBC (Auto) Urine RBC (Auto) Ur Squamous Epith Cells Urine Bacteria Urine Glucose Urine Ascorbic Acid Influenza A (Rapid) Influenza B (Rapid) 08/14/18 08/14/18 08/15/18 21:00 23:06 01:17 WBC RBC Hgb Hct MCV MCH MCHC RDW Plt Count MPV Neut % (Auto) Lymph % (Auto) [place] % (Auto) Eos % (Auto) Baso % (Auto) Absolute Neuts (auto) Absolute Lymphs (auto) Absolute Monos (auto) Absolute Eos (auto) Absolute Basos (auto) Absolute Nucleated RBC Nucleated RBC % INR (Anticoag Therapy) 1.10 H APTT Sodium 131 L Potassium Chloride Carbon Dioxide Anion Gap BUN Creatinine Est GFR ( Amer) Est GFR (Non-Af Amer) BUN/Creatinine Ratio Glucose Hemoglobin A1c Lactic Acid Calcium Total Bilirubin AST ALT Alkaline Phosphatase Total Protein Albumin Globulin Albumin/Globulin Ratio Triglycerides Cholesterol LDL Cholesterol HDL Cholesterol Urine Color Yellow Urine Appearance Cloudy Urine pH 5.0 Ur Specific [place] 1.015 Urine Protein Negative Urine Ketones Negative Urine Blood 3+ A Urine Nitrate Negative Urine Bilirubin Negative Urine Urobilinogen Negative Ur Leukocyte Esterase 1+ A Urine WBC (Auto) 3+(>20/hpf) A Urine RBC (Auto) 3+(>10/hpf) A Ur Squamous Epith Cells Present A Urine Bacteria 1+ A Urine Glucose 3+(>=500 mg/dl) A Urine Ascorbic Acid * A Influenza A (Rapid) Influenza B (Rapid) 08/15/18 08/15/18 08/15/18 05:02 05:03 05:03 WBC 13.9 H RBC 3.92 L Hgb 11.7 L Hct 35 L MCV 90 MCH 30 MCHC 33 RDW 14 Plt Count 169 MPV 8.8 Neut % (Auto) 79.5 Lymph % (Auto) 11.0 L [place] % (Auto) 9.1 H Eos % (Auto) 0.2 Baso % (Auto) 0.2 Absolute Neuts (auto) 11.0 H Absolute Lymphs (auto) 1.5 Absolute Monos (auto) 1.3 H Absolute Eos (auto) 0 Absolute Basos (auto) 0 Absolute Nucleated RBC 0 Nucleated RBC % 0 INR (Anticoag Therapy) APTT Sodium 135 Potassium 3.9 Chloride 100 L Carbon Dioxide 27 Anion Gap 8 BUN 28 H Creatinine 2.18 H Est GFR ( Amer) 36.4 Est GFR (Non-Af Amer) 30.1 BUN/Creatinine Ratio 12.8 Glucose 305 H Hemoglobin A1c 7.7 H Lactic Acid Calcium 9.1 Total Bilirubin 0.90 AST 31 ALT 36 Alkaline Phosphatase 78 Total Protein 6.0 L Albumin 3.6 Globulin 2.4 Albumin/Globulin Ratio 1.5 Triglycerides 85 Cholesterol 118 LDL Cholesterol 51 HDL Cholesterol 49.7 Urine Color Urine Appearance Urine pH Ur Specific [place] Urine Protein Urine Ketones Urine Blood Urine Nitrate Urine Bilirubin Urine Urobilinogen Ur Leukocyte Esterase Urine WBC (Auto) Urine RBC (Auto) Ur Squamous Epith Cells Urine Bacteria Urine Glucose Urine Ascorbic Acid Influenza A (Rapid) Influenza B (Rapid) 08/15/18 08/15/18 08/15/18 05:03 05:03 06:43 WBC RBC Hgb Hct MCV MCH MCHC RDW Plt Count MPV Neut % (Auto) Lymph % (Auto) [place] % (Auto) Eos % (Auto) Baso % (Auto) Absolute Neuts (auto) Absolute Lymphs (auto) Absolute Monos (auto) Absolute Eos (auto) Absolute Basos (auto) Absolute Nucleated RBC Nucleated RBC % INR (Anticoag Therapy) APTT 28.0 Sodium 133 L Potassium 3.9 Chloride 100 L Carbon Dioxide 26 Anion Gap 7 BUN 28 H Creatinine 2.10 H Est GFR ( Amer) 38.0 Est GFR (Non-Af Amer) 31.4 BUN/Creatinine Ratio 13.3 Glucose 307 H Hemoglobin A1c Lactic Acid Calcium 9.1 Total Bilirubin AST ALT Alkaline Phosphatase Total Protein Albumin Globulin Albumin/Globulin Ratio Triglycerides 82 Cholesterol 116 LDL Cholesterol 50 HDL Cholesterol 49.7 Urine Color Urine Appearance Urine pH Ur Specific [place] Urine Protein Urine Ketones Urine Blood Urine Nitrate Urine Bilirubin Urine Urobilinogen Ur Leukocyte Esterase Urine WBC (Auto) Urine RBC (Auto) Ur Squamous Epith Cells Urine Bacteria Urine Glucose Urine Ascorbic Acid Influenza A (Rapid) Negative Influenza B (Rapid) Negative Assessment - Problem List Assessment: Patient Problems Acute on chronic renal failure (Acute) Acute prostatitis (Acute) Fever (Acute) Primary prostate adenocarcinoma (Acute) SIRS (systemic inflammatory response syndrome) (Acute) UTI (urinary tract infection) (Acute) Uncontrolled type 1 diabetes mellitus (Acute) ADHD (attention deficit hyperactivity disorder) (Chronic) Androgen deficiency (Chronic) Background diabetic retinopathy (Chronic) Controlled depression (Chronic) Hyperlipidemia (Chronic) Insulin pump in place (Chronic) Overweight (BMI 25.0-29.9) (Chronic) PVD (peripheral vascular disease) (Chronic) 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) Renal cancer (Chronic) Stage 3 chronic kidney disease (Chronic) Type I diabetes mellitus (Chronic) Plan: Acute prostatitis (Acute)Fever (Acute) SIRS (systemic inflammatory response syndrome) (Acute) UTI (urinary tract infection) (Acute) This is the result of instrumentation on 08/13/2018 for prostate biopsy. He is covered with piperacillin/tazobactam (zosyn) to ensure coverage of aerobes and anerobes. I discussed this with Dr. Elijah Betancourt. We are awaiting C and S that should help us guide our antibacterials. I note that he had broad coverage for intestinal organisms at the time of the biopsy. There is a concern for polymicrobial infection. However, he appears to be responding - %neuts are coming down, and his fever is gone. Acute on chronic renal failure (Acute) Stage 3 chronic kidney disease (Chronic) 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) Renal cancer (Chronic) He has a complex renal history and is a patient of both Dr. Dominguez Inman ( nephrology) and Dr. Elijah Betancourt (urology). He has 1 liter in his bladder in a post-void bladder scan this morning. Hence we are having to start a urinary catheter - this will help the obstructive component of his acute renal insufficiency. Primary prostate adenocarcinoma (Acute) Per Dr Betancourt - he has not had this disclosed. Uncontrolled type 1 diabetes mellitus (Acute) Insulin pump in place (Chronic) Type I diabetes mellitus (Chronic) I have increased his insulin [employer] CSII devise to a temporary basal rate of 2 units per hour and he is doubling his boluses at mealtimes. I suspect this will come under control as his acute infection improves. I watched him change his infusion set - this was flawless. Androgen deficiency (Chronic) I have stopped his testosterone in view of the prostate cancer diagnosis Secondary diagnoses not exacerbated by his current problems: Background diabetic retinopathy (Chronic) Controlled depression (Chronic) Hyperlipidemia (Chronic) Overweight (BMI 25.0-29.9) (Chronic) PVD (peripheral vascular disease) (Chronic) I discussed the above with Stefan Crabtree and I will work in concert with Dr. Elijah Betancourt to bring this infection under control. He agrees with the management plan.
[2018-08-15] MEDS: Atorvastatin* 40 MG TAB PO SCH (18:29)
--- NOTE | 2018-08-15 19:50 | CONS ---
CC: Jesús Lin MD; Elijah Betancourt MD * CONSULTATION NOTE: DATE OF CONSULT: 08/15/18 LOCATION: The patient is in room #347, bed 2. HISTORY OF PRESENT ILLNESS: Mr. Crabtree is a 72-year-old white male whom I have been following because of bladder outlet obstruction, moderate increased post void residual and prostate enlargement who has been maintained on tamsulosin 0.4 mg daily. He had a PSA elevation reaching up to 8 recently. Rectal examination had shown an enlarged but nonsuspicious prostate. His postvoid residual in the office has been in the vicinity of 125 cc. The patient has a solitary right kidney having undergone a left nephrectomy years ago because of renal cell carcinoma. He is diabetic and he has diabetic nephropathy and proteinuria, with his serum creatinine in the vicinity of 2. 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 Because of the PSA elevation and progression, he underwent a transrectal ultrasound and multiple prostate biopsies in my office on 08/10/18. His urinalysis before the procedure was negative. He was given antibiotic prophylaxis in the form of Cipro 500 mg and Keflex 500 mg p.o. the evening before the procedure, 2 hours before the procedure and the evening after the procedure, and was also given gentamicin 160 mg IM 1 hour before the procedure. The procedure went smoothly and he was able to void following the biopsies. He was doing well until 2 days ago when he started having myalgias and fatigue. He called me yesterday evening reporting having a fever of 101.5, myalgias and some chillness. He denied any voiding symptoms, in particular, no burning on urination and no hematuria and no difficulty emptying his bladder. Because of that history, I asked him to go to the emergency room where he was evaluated by the emergency room staff. His white count was elevated at about 13 ,000 and he had a slight shift. His urinalysis was positive for infection. His vital signs were normal, in particular, he was not febrile. His creatinine was 2.2, which is stable for him. His blood sugar was elevated at 340. After obtaining urine and blood cultures, the patient was admitted and started on IV Zosyn. When I saw him this morning, he has been complaining of increasing difficulty voiding, voiding in small amount and frequently, feeling incomplete bladder emptying. He denied any burning on urination or hematuria. On his exam this morning, he is afebrile. He feels comfortable except for the suprapubic discomfort. On examination, he has no CVA tenderness, but the bladder feels markedly distended reaching up to his umbilicus. A bladder scan was obtained and it showed that he is in retention of more than 1,000 cc. I placed a 16-Brazilian Heath catheter without difficulty. A total of 1,400 cc of concentrated urine was drained and the patient felt immediate relief. The pathology on the prostate biopsies showed 1 positive core of [place] 7 (3 + 4, with the pattern 4 component at 25%) occupying 10% of one of the cores obtained from the left base. The rest of the biopsy cores were negative for malignancy. I had a long discussion with the patient and his regarding the plans for his management. Regarding the acute prostatitis, the plan is to continue on the IV Zosyn and wait for the culture results and then shift him to oral antibiotic. Regarding the urinary retention, the plan is to increase the tamsulosin to 0.8 mg daily for the time being and to keep the Heath catheter until the prostatitis and associated prostate edema are resolved, and the overdistention of the bladder is recovered. That requires him to be on catheter drainage for at least 1 week. Regarding the prostate carcinoma, he will need treatment. Considering his bladder outlet obstruction symptoms with the incomplete bladder emptying, he will not be a good candidate for radiation therapy, and he would be a good candidate for radical prostatectomy. This will be discussed more in detail once he is recovered from his present episode. I will be following him during his hospital stay. Then, I will see him in my office after his discharge. [id number]/[facility] #: [id number] [facility]
[2018-08-16] MEDS: Piperacillin/Tazobac ADVAN(*) 3.375 GM in NS 0.9% 100 ML* 100 ML IVPB SCH ×3 (03:21→19:33)
[2018-08-16] MEDS: Heparin VIAL(*) 5000 UNITS/ML VIAL (FIVE THOUSAND) SUBCUT SCH ×3 (05:30→21:33)
[2018-08-16 05:32] LABS: ABS Basophils 0.1 10^3/ul (0-0.2); ABS Eosinophils 0 10^3/ul (0-0.6); ABS Lymphocytes 1.1 10^3/ul (1.0-4.8); ABS Monocytes 1.1 10^3/ul (0-0.8); ABS Neutrophils 9.2 10^3/ul (1.5-7.7); ABS Nucleated RBC 0 10^3/ul; Eosinophil % 0.3 % (0-6); Hematocrit 31 % (42-52); Hemoglobin 10.3 g/dl (14.0-18.0); Lymphocyte % 9.4 % (25-47); Mean Corpuscular HGB Conc 34 g/dl (31-36); Mean Corpuscular Hemoglobin 30 pg (27-31); Mean Corpuscular Volume 90 fL (80-94); Mean Platelet Volume 8.7 fL (7.4-10.4); Nucleated Red Blood Cells % 0; Platelet Count 152 10^3/ul (150-450); Red Blood Count 3.43 10^6/ul (4.00-5.40); Red Cell Distribution Width 13 % (10.5-15); White Blood Count 11.5 10^3/ul (3.5-10.8)
[2018-08-16 05:49] LABS: EGFR Non-African American 31.9 (>60)
[2018-08-16] MEDS: Methylphenidate TAB* 10 MG PO SCH ×4 (06:48→18:03)
[2018-08-16] MEDS: NS 0.9% 1000 ML* 1,000 ML IV SCH (07:36)
[2018-08-16] MEDS ORDERED: Temazepam CAP* 15 MG PO PRN (08:51)
--- NOTE | 2018-08-16 08:57 | PN ---
Subjective - Subjective Reason for Note: Progress Note History: He has had no further fevers, chills or rigors. He is more comfortable with the urinary catheter. Overnight he has had no problems with dyspnea, palpitations or chest discomfort. He is not coughing or bringing up sputum. He had hypoglycemia last evening and has cut his basal rate down to his usual numbers. He is eating and drinking normally. Active Problems: Active Problems Acute on chronic renal failure (Acute) N17.9, N18.9 Acute prostatitis (Acute) N41.0 Fever (Acute) R50.9 prn tylenol Obstructive uropathy (Acute) N13.9 Primary prostate adenocarcinoma (Acute) C61 SIRS (systemic inflammatory response syndrome) (Acute) R65.10 zosyn while waiting for culture result ck flu a/b mrsa nare UTI (urinary tract infection) (Acute) continue with zosyn while waiting for urine cx result Uncontrolled type 1 diabetes mellitus (Acute) E10.65 ADHD (attention deficit hyperactivity disorder) (Chronic) Androgen deficiency (Chronic) E29.1 continue testostone therapy Background diabetic retinopathy (Chronic) E11.3299 Controlled depression (Chronic) F32.9 Hyperlipidemia (Chronic) E78.5 lft wnl ck lipid panel continue outpt med Insulin pump in place (Chronic) Z96.41 Overweight (BMI 25.0-29.9) (Chronic) E66.3 PVD (peripheral vascular disease) (Chronic) I73.9 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) E10.29, R80.9 Renal cancer (Chronic) s/p nephrectomy moniter at this point Stage 3 chronic kidney disease (Chronic) N18.3 Type I diabetes mellitus (Chronic) pt is on insulin pump + jenuvia continue outpt mgt ck a1c Current Medications: Current Medications Hydrocodone Bitart/Acetaminophen ([place] 5-325 Tab*) 1 tab PO Q4H PRN PRN Reason: PAIN Last Admin: 08/15/18 16:52 Dose: 1 tab Atorvastatin Calcium (Lipitor*) 40 mg PO QPM DINAH Last Admin: 08/15/18 18:29 Dose: 40 mg Bupropion HCl (Bupropion Xl*) 300 mg PO DAILY DINAH Last Admin: 08/15/18 08:19 Dose: 300 mg Dextrose (D50w Syringe 50 Ml*) 12.5 gm IV PUSH .FOR FS < 60 - SS PRN PRN Reason: FS < 60 Diltiazem HCl (Cardizem Cd Cap*) 240 mg PO DAILY [facility] Last Admin: 08/15/18 08:19 Dose: 240 mg Heparin Sodium (Porcine) (Heparin Vial(*)) 5,000 units SUBCUT Q8HR [facility] Last Admin: 08/16/18 05:30 Dose: 5,000 units Sodium Chloride (Ns 0.9% 1000 Ml*) 1,000 mls @ 100 mls/hr IV PER RATE [facility] Last Admin: 08/16/18 07:36 Dose: 100 mls/hr Piperacillin Sod/Tazobactam (Sod 3.375 gm/ Sodium Chloride) 100 mls @ 25 mls/ hr IVPB Q8H [facility] Last Admin: 08/16/18 03:21 Dose: 25 mls/hr Methylphenidate HCl (Ritalin Tab*) 20 mg PO 0600,1000,1300,1700 [facility] Last Admin: 08/16/18 06:48 Dose: 20 mg Olanzapine (Zyprexa Tab*) 5 mg PO DAILY PRN PRN Reason: depression Last Admin: 08/16/18 05:30 Dose: 5 mg Sitagliptin Phosphate (Januvia (Nf)) 50 mg PO DAILY [facility] Last Admin: 08/15/18 08:18 Dose: 50 mg Tamsulosin HCl (Flomax Cap*) 0.4 mg PO BEDTIME [facility] Last Admin: 08/15/18 21:42 Dose: 0.4 mg Ziprasidone (Geodon (Generic) *) 60 mg PO DAILY [facility] Last Admin: 08/15/18 08:18 Dose: 60 mg Home Medications: Home Medications Medication Instructions Recorded Confirmed Type Atorvastatin* [Lipitor*] 40 mg PO QPM 08/21/16 08/15/18 History BuPROPion XL* [Bupropion XL*] 300 mg PO DAILY 08/21/16 08/15/18 History Insulin LISPRO* [HumaLOG*] 1 unit SUBCUT SEE INSTRUCTIONS 08/21/16 08/15/18 History Methylphenidate TAB* [Ritalin TAB*] 20 mg PO QID 08/21/16 08/15/18 History OLANzapine TAB* [ZyPREXA TAB*] 5 mg PO DAILY PRN 08/21/16 08/15/18 History Sildenafil (NF) [Viagra (NF)] 100 mg PO BID PRN 08/21/16 08/15/18 History Testosterone [Androgel] 3 applic TD DAILY 08/21/16 08/15/18 History Ziprasidone CAP* [Geodon CAP*] 60 mg PO DAILY 08/21/16 08/15/18 History Sitagliptin (NF) [Januvia (NF)] 50 mg PO DAILY 02/13/17 08/15/18 History Tamsulosin HCl [Flomax] 0.4 mg PO DAILY 08/15/18 08/15/18 History dilTIAZem HCl [Cartia Xt] 240 mg PO DAILY 08/15/18 08/15/18 History hydroCHLOROthiazide 1 cap PO DAILY 08/15/18 08/15/18 History [Hydrochlorothiazide] Allergies: Allergies Allergy/AdvReac Type Severity Reaction Status Date / Time aspirin Allergy Unknown Verified 08/15/18 00:24 Reaction Details Objective - Vital Signs Vital Signs: Vital Signs 08/15/18 08/15/18 08/15/18 14:30 16:37 16:52 Temperature 100.3 F 99.9 F Pulse Rate 79 87 Respiratory 16 16 16 Rate Blood Pressure 152/53 151/55 (mmHg) O2 Sat by Pulse 100 99 Oximetry 08/15/18 08/15/18 08/15/18 19:43 19:45 20:04 Temperature 98.7 F Pulse Rate 74 Respiratory 16 16 16 Rate Blood Pressure 145/53 (mmHg) O2 Sat by Pulse 99 99 Oximetry 08/15/18 08/16/18 08/16/18 23:44 03:05 07:29 Temperature 99.7 F 98.2 F 99.0 F Pulse Rate 84 81 83 Respiratory 16 16 18 Rate Blood Pressure 144/57 150/61 160/59 (mmHg) O2 Sat by Pulse 96 98 98 Oximetry 08/16/18 08:00 Temperature Pulse Rate Respiratory 18 Rate Blood Pressure (mmHg) O2 Sat by Pulse Oximetry - Intake and Output Intake and Output: Intake & Output 08/13/18 08/14/18 08/15/18 08/16/18 11:59 11:59 11:59 11:59 Intake Total 1343 6198 Output Total 2150 3975 Balance -807 2223 Weight 220 lb Intake: IV Fluids 1043 3338 ABX - ZOSYN 105 NS (0.9%) 943 3233 IVPB 100 210 ABX - ZOSYN 100 210 Oral 200 2650 Output: Urine 700 800 Heath 1450 3175 ADLs: Meal Record Start: 08/15/18 00: 44 Freq: Status: Active Protocol: Created 08/15/18 00:44 System (Rec: 08/15/18 00:44 System [id number]) Document 08/15/18 09:49 [id number] (Rec: 08/15/18 09:50 [id number] SSU-C05) Document 08/15/18 14:29 [id number] (Rec: 08/15/18 14:30 [id number] SSU-C05) Document 08/15/18 18:41 [id number] (Rec: 08/15/18 18:42 [id number] [id number]) Intake and Output Start: 08/14/18 18: 46 Freq: Status: Active Protocol: Created 08/14/18 18:46 System (Rec: 08/14/18 18:46 System [id number]) Intake and Output Start: 08/15/18 00: 44 Freq: DAILY@0600,1400,2200 Status: Active Protocol: Created 08/15/18 00:44 System (Rec: 08/15/18 00:44 System [id number]) Document 08/15/18 03:28 [id number] (Rec: 08/15/18 03:28 [id number] SSU-C05) Document 08/15/18 11:00 [id number] (Rec: 08/15/18 14:29 [id number] SSU-C05) Document 08/15/18 14:29 [id number] (Rec: 08/15/18 14:30 [id number] SSU-C05) Document 08/15/18 21:59 [id number] (Rec: 08/15/18 22:01 [id number] SSU-M18) Document 08/16/18 05:02 [id number] (Rec: 08/16/18 05:02 [id number] SSU-C05) Document 08/16/18 05:28 [id number] (Rec: 08/16/18 05:32 [id number] SSU-C05) - Physical Exam General Physical Exam Comment: Warm and well perfused, looking comfortable. Alert, oriented and fully aware of his situation General: No Cyanosis, No Anemia, No Jaundice, No Clubbing Lungs and Chest: Yes: Chest Expansion Full, Chest Expansion Symetrica, Percussion Note Resonant, Vessicular Breath Sounds. No: Crackles, Wheezes Heart Rate and Rhythm: Regular Additional Cardiovascular: Yes: Normal Heart Sounds. No: Heart Murmur, Pedal Edema Abdominal Exam: Yes: Soft, Bowel Sounds Present. No: Distention, Abdominal Tenderness Results - Results Lab Results: Laboratory Results - last 24 hr 08/15/18 08/15/18 08/15/18 05:02 05:03 08:24 WBC RBC Hgb Hct MCV MCH MCHC RDW Plt Count MPV Neut % (Auto) Lymph % (Auto) [place] % (Auto) Eos % (Auto) Baso % (Auto) Absolute Neuts (auto) Absolute Lymphs (auto) Absolute Monos (auto) Absolute Eos (auto) Absolute Basos (auto) Absolute Nucleated RBC Nucleated RBC % Sodium 135 Potassium 3.9 Chloride 100 L Carbon Dioxide 27 Anion Gap 8 BUN 28 H Creatinine 2.18 H Est GFR ( Amer) 36.4 Est GFR (Non-Af Amer) 30.1 BUN/Creatinine Ratio 12.8 Glucose 305 H POC Glucose (mg/dL) 316 H Hemoglobin A1c 7.7 H Calcium 9.1 Total Bilirubin 0.90 AST 31 ALT 36 Alkaline Phosphatase 78 C-Reactive Protein Total Protein 6.0 L Albumin 3.6 Globulin 2.4 Albumin/Globulin Ratio 1.5 Triglycerides 85 Cholesterol 118 LDL Cholesterol 51 HDL Cholesterol 49.7 08/15/18 08/15/18 08/16/18 14:19 16:56 05:19 WBC 11.5 H RBC 3.43 L Hgb 10.3 L Hct 31 L MCV 90 MCH 30 MCHC 34 RDW 13 Plt Count 152 MPV 8.7 Neut % (Auto) 80.2 Lymph % (Auto) 9.4 L [place] % (Auto) 9.4 H Eos % (Auto) 0.3 Baso % (Auto) 0.7 Absolute Neuts (auto) 9.2 H Absolute Lymphs (auto) 1.1 Absolute Monos (auto) 1.1 H Absolute Eos (auto) 0 Absolute Basos (auto) 0.1 Absolute Nucleated RBC 0 Nucleated RBC % 0 Sodium Potassium Chloride Carbon Dioxide Anion Gap BUN Creatinine Est GFR ( Amer) Est GFR (Non-Af Amer) BUN/Creatinine Ratio Glucose POC Glucose (mg/dL) 315 H 196 H Hemoglobin A1c Calcium Total Bilirubin AST ALT Alkaline Phosphatase C-Reactive Protein Total Protein Albumin Globulin Albumin/Globulin Ratio Triglycerides Cholesterol LDL Cholesterol HDL Cholesterol 08/16/18 08/16/18 05:19 07:40 WBC RBC Hgb Hct MCV MCH MCHC RDW Plt Count MPV Neut % (Auto) Lymph % (Auto) [place] % (Auto) Eos % (Auto) Baso % (Auto) Absolute Neuts (auto) Absolute Lymphs (auto) Absolute Monos (auto) Absolute Eos (auto) Absolute Basos (auto) Absolute Nucleated RBC Nucleated RBC % Sodium 135 Potassium 4.0 Chloride 105 Carbon Dioxide 28 Anion Gap 2 BUN 23 Creatinine 2.07 H Est GFR ( Amer) 38.6 Est GFR (Non-Af Amer) 31.9 BUN/Creatinine Ratio 11.1 Glucose 117 H POC Glucose (mg/dL) 228 H Hemoglobin A1c Calcium 8.8 Total Bilirubin AST ALT Alkaline Phosphatase C-Reactive Protein 176.04 H Total Protein Albumin Globulin Albumin/Globulin Ratio Triglycerides Cholesterol LDL Cholesterol HDL Cholesterol Assessment - Problem List Assessment: Patient Problems Acute on chronic renal failure (Acute) Acute prostatitis (Acute) Fever (Acute) Obstructive uropathy (Acute) Primary prostate adenocarcinoma (Acute) SIRS (systemic inflammatory response syndrome) (Acute) UTI (urinary tract infection) (Acute) Uncontrolled type 1 diabetes mellitus (Acute) ADHD (attention deficit hyperactivity disorder) (Chronic) Androgen deficiency (Chronic) Background diabetic retinopathy (Chronic) Controlled depression (Chronic) Hyperlipidemia (Chronic) Insulin pump in place (Chronic) Overweight (BMI 25.0-29.9) (Chronic) PVD (peripheral vascular disease) (Chronic) 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 I spoke with microbiology - urine growing > 100,000 cfu of a gram negative neeraj - tomorrow we will obtain ID, C and S. He is no longer septic. However, he has a markedly elevated CRP. We will rationalize his antibacterials when we have the microbiology results Acute on chronic renal failure (Acute) Obstructive uropathy - he had >1,000 mls in his post void bladder - he now has a Heath catheter. This may have contributed to his urosepis and also to the renal insufficiency Primary prostate adenocarcinoma (Acute) This is obstructive - Dr. Betancourt has started a conversation with the patient - recommends surgery as it is an obstructive tumor. 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
[2018-08-16] MEDS: CMCS: Sitagliptin (NF) 50 MG TAB PO SCH (09:07)
[2018-08-16] MEDS: BuPROPion XL* 300 MG TAB.XL PO SCH (09:07)
[2018-08-16] MEDS: Diltiazem CD CAP* 240 MG PO SCH (09:07)
[2018-08-16] MEDS: Ziprasidone * 20 MG CAP (generic Geodon) PO SCH (10:10)
[2018-08-16] MEDS: Hydrochlorothiazide TAB* 25 MG PO SCH (10:34)
[2018-08-16] MEDS ORDERED: Acetaminophen TAB* 325 MG PO PRN (14:15)
[2018-08-16] MEDS ORDERED: Acetaminophen TAB* 325 MG ONE (16:22)
[2018-08-16] MEDS: Atorvastatin* 40 MG TAB PO SCH (18:03)
[2018-08-16] MEDS ORDERED: Tamsulosin CAP* 0.4 MG PO SCH (21:00)
[2018-08-16] MEDS ORDERED: Ziprasidone * 20 MG CAP (generic Geodon) PO SCH (21:00)
[2018-08-17] MEDS: Piperacillin/Tazobac ADVAN(*) 3.375 GM in NS 0.9% 100 ML* 100 ML IVPB SCH (03:48)
[2018-08-17 05:00] LABS: ABS Basophils 0.1 10^3/ul (0-0.2); ABS Eosinophils 0.1 10^3/ul (0-0.6); ABS Monocytes 0.8 10^3/ul (0-0.8); ABS Neutrophils 7.8 10^3/ul (1.5-7.7); ABS Nucleated RBC 0 10^3/ul; Eosinophil % 0.5 %; Hematocrit 32 % (42-52); Hemoglobin 10.8 g/dl (14.0-18.0); Lymphocyte % 9.8 %; Mean Corpuscular HGB Conc 34 g/dl (31-36); Mean Corpuscular Hemoglobin 30 pg (27-31); Mean Corpuscular Volume 89 fL (80-94); Mean Platelet Volume 8.5 fL (7.4-10.4); Nucleated Red Blood Cells % 0; Platelet Count 174 10^3/ul (150-450); Red Blood Count 3.55 10^6/ul (4.00-5.40); Red Cell Distribution Width 14 % (10.5-15); White Blood Count 9.7 10^3/ul (3.5-10.8)
[2018-08-17 05:34] LABS: EGFR Non-African American 34.4 (>60)
[2018-08-17] MEDS: Heparin VIAL(*) 5000 UNITS/ML VIAL (FIVE THOUSAND) SUBCUT SCH (05:45)
[2018-08-17] MEDS: Methylphenidate TAB* 10 MG PO SCH (05:45)
[2018-08-17 07:16] VITALS: BP 135/76
--- NOTE | 2018-08-17 08:41 | PN ---
Subjective - Subjective Reason for Note: Discharge Note History: He is feeling better - although a little tired at the end of the day. He has no fever, sweats or chills. He tolerates his Heath catheter. He has a normal appetite and has had a BM Active Problems: Active Problems Acute on chronic renal failure (Acute) N17.9, N18.9 Acute prostatitis (Acute) N41.0 Fever (Acute) R50.9 prn tylenol Obstructive uropathy (Acute) N13.9 Primary prostate adenocarcinoma (Acute) C61 SIRS (systemic inflammatory response syndrome) (Acute) R65.10 zosyn while waiting for culture result ck flu a/b mrsa nare UTI (urinary tract infection) (Acute) continue with zosyn while waiting for urine cx result Uncontrolled type 1 diabetes mellitus (Acute) E10.65 ADHD (attention deficit hyperactivity disorder) (Chronic) Androgen deficiency (Chronic) E29.1 continue testostone therapy Background diabetic retinopathy (Chronic) E11.3299 Controlled depression (Chronic) F32.9 Hyperlipidemia (Chronic) E78.5 lft wnl ck lipid panel continue outpt med Insulin pump in place (Chronic) Z96.41 Overweight (BMI 25.0-29.9) (Chronic) E66.3 PVD (peripheral vascular disease) (Chronic) I73.9 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) E10.29, R80.9 Renal cancer (Chronic) s/p nephrectomy moniter at this point Stage 3 chronic kidney disease (Chronic) N18.3 Type I diabetes mellitus (Chronic) pt is on insulin pump + jenuvia continue outpt mgt ck a1c Current Medications: Current Medications Acetaminophen (Tylenol Tab*) 650 mg PO Q6H PRN PRN Reason: FEVER/PAIN Hydrocodone Bitart/Acetaminophen ([place] 5-325 Tab*) 1 tab PO Q4H PRN PRN Reason: PAIN Last Admin: 08/15/18 16:52 Dose: 1 tab Atorvastatin Calcium (Lipitor*) 40 mg PO QPM [facility] Last Admin: 08/16/18 18:03 Dose: 40 mg Bupropion HCl (Bupropion Xl*) 300 mg PO DAILY [facility] Last Admin: 08/16/18 09:07 Dose: 300 mg Dextrose (D50w Syringe 50 Ml*) 12.5 gm IV PUSH .FOR FS < 60 - SS PRN PRN Reason: FS < 60 Diltiazem HCl (Cardizem Cd Cap*) 240 mg PO DAILY [facility] Last Admin: 08/16/18 09:07 Dose: 240 mg Heparin Sodium (Porcine) (Heparin Vial(*)) 5,000 units SUBCUT Q8HR [facility] Last Admin: 08/17/18 05:45 Dose: 5,000 units Hydrochlorothiazide (Hydrodiuril Tab*) 12.5 mg PO DAILY [facility] Last Admin: 08/16/18 10:34 Dose: 12.5 mg Piperacillin Sod/Tazobactam (Sod 3.375 gm/ Sodium Chloride) 100 mls @ 25 mls/ hr IVPB Q8H [facility] Last Admin: 08/17/18 03:48 Dose: 25 mls/hr Methylphenidate HCl (Ritalin Tab*) 20 mg PO 0600,1000,1300,1700 [facility] Last Admin: 08/17/18 05:45 Dose: 20 mg Olanzapine (Zyprexa Tab*) 5 mg PO DAILY PRN PRN Reason: depression Last Admin: 08/16/18 05:30 Dose: 5 mg Sitagliptin Phosphate (Januvia (Nf)) 50 mg PO DAILY [facility] Last Admin: 08/16/18 09:07 Dose: 50 mg Tamsulosin HCl (Flomax Cap*) 0.8 mg PO BEDTIME [facility] Last Admin: 08/16/18 21:34 Dose: 0.8 mg Temazepam (Restoril Cap*) 30 mg PO BEDTIME PRN PRN Reason: INSOMNIA Ziprasidone (Geodon (Generic) *) 60 mg PO 2100 [facility] Last Admin: 08/16/18 21:34 Dose: 60 mg Home Medications: Home Medications Medication Instructions Recorded Confirmed Type Atorvastatin* [Lipitor*] 40 mg PO QPM 08/21/16 08/15/18 History BuPROPion XL* [Bupropion XL*] 300 mg PO DAILY 08/21/16 08/15/18 History Insulin LISPRO* [HumaLOG*] 1 unit SUBCUT SEE INSTRUCTIONS 08/21/16 08/15/18 History Methylphenidate TAB* [Ritalin TAB*] 20 mg PO QID 08/21/16 08/15/18 History OLANzapine TAB* [ZyPREXA TAB*] 5 mg PO DAILY PRN 08/21/16 08/15/18 History Sildenafil (NF) [Viagra (NF)] 100 mg PO BID PRN 08/21/16 08/15/18 History Testosterone [Androgel] 3 applic TD DAILY 08/21/16 08/15/18 History Ziprasidone CAP* [Geodon CAP*] 60 mg PO DAILY 08/21/16 08/15/18 History Sitagliptin (NF) [Januvia (NF)] 50 mg PO DAILY 02/13/17 08/15/18 History Tamsulosin HCl [Flomax] 0.4 mg PO DAILY 08/15/18 08/15/18 History dilTIAZem HCl [Cartia Xt] 240 mg PO DAILY 08/15/18 08/15/18 History hydroCHLOROthiazide 1 cap PO DAILY 08/15/18 08/15/18 History [Hydrochlorothiazide] Allergies: Allergies Allergy/AdvReac Type Severity Reaction Status Date / Time aspirin Allergy Unknown Verified 08/15/18 00:24 Reaction Details Objective - Vital Signs Vital Signs: Vital Signs 08/16/18 08/16/18 08/16/18 11:34 16:09 19:34 Temperature 98.3 F 100.0 F 99.2 F Pulse Rate 70 80 80 Respiratory 16 18 18 Rate Blood Pressure 149/63 160/70 177/57 (mmHg) O2 Sat by Pulse 99 98 98 Oximetry 08/16/18 08/16/18 08/17/18 19:42 19:45 00:11 Temperature 99.8 F Pulse Rate 72 Respiratory 18 18 16 Rate Blood Pressure 141/59 (mmHg) O2 Sat by Pulse 95 Oximetry 08/17/18 08/17/18 08/17/18 03:39 07:13 07:22 Temperature 97.7 F 98.1 F Pulse Rate 72 96 Respiratory 18 16 18 Rate Blood Pressure 125/53 135/76 (mmHg) O2 Sat by Pulse 97 97 97 Oximetry - Intake and Output Intake and Output: Intake & Output 08/14/18 08/15/18 08/16/18 08/17/18 11:59 11:59 11:59 11:59 Intake Total 1343 6198 1170 Output Total 2150 3975 4300 Balance -807 2223 -3130 Weight 220 lb Intake: IV Fluids 1043 3338 ABX - ZOSYN 105 NS (0.9%) 943 3233 IVPB 100 210 ABX - ZOSYN 100 210 Oral 200 2650 1170 Output: Urine 700 800 0 Heath 1450 3175 4300 ADLs: Meal Record Start: 08/15/18 00: 44 Freq: Status: Active Protocol: Created 08/15/18 00:44 System (Rec: 08/15/18 00:44 System SSU-C05) Document 08/15/18 09:49 [id number] (Rec: 08/15/18 09:50 [id number] SSU-C05) Document 08/15/18 14:29 [id number] (Rec: 08/15/18 14:30 [id number] SSU-C05) Document 08/15/18 18:41 [id number] (Rec: 08/15/18 18:42 [id number] SSU-M18) Document 08/16/18 19:46 [id number] (Rec: 08/16/18 19:46 [id number] SSU-C10) Intake and Output Start: 08/14/18 18: 46 Freq: Status: Active Protocol: Created 08/14/18 18:46 System (Rec: 08/14/18 18:46 System [id number]) Intake and Output Start: 08/15/18 00: 44 Freq: DAILY@0600,1400,2200 Status: Active Protocol: Created 08/15/18 00:44 System (Rec: 08/15/18 00:44 System SSU-C05) Document 08/15/18 03:28 [id number] (Rec: 08/15/18 03:28 [id number] SSU-C05) Document 08/15/18 11:00 [id number] (Rec: 08/15/18 14:29 [id number] SSU-C05) Document 08/15/18 14:29 [id number] (Rec: 08/15/18 14:30 [id number] SSU-C05) Document 08/15/18 21:59 [id number] (Rec: 08/15/18 22:01 [id number] SSU-M18) Document 08/16/18 05:02 [id number] (Rec: 08/16/18 05:02 [id number] SSU-C05) Document 08/16/18 05:28 [id number] (Rec: 08/16/18 05:32 [id number] SSU-C05) Document 08/16/18 13:02 [id number] (Rec: 08/16/18 13:03 [id number] SSU-L01) Document 08/16/18 14:28 [id number] (Rec: 08/16/18 14:28 [id number] SSU-L02) Document 08/16/18 22:00 [id number] (Rec: 08/16/18 22:35 [id number] SSU-C10) Document 08/16/18 23:54 [id number] (Rec: 08/16/18 23:54 [id number] [facility]-M07) Document 08/17/18 00:27 [id number] (Rec: 08/17/18 00:27 [id number] SSU-C05) Document 08/17/18 03:53 [id number] (Rec: 08/17/18 03:53 [id number] [facility]-M07) Document 08/17/18 06:00 [id number] (Rec: 08/17/18 06:20 [id number] SSU-L02) - Physical Exam General: No Cyanosis, No Anemia, No Jaundice, No Clubbing Lungs and Chest: Yes: Chest Expansion Full, Chest Expansion Symetrica, Percussion Note Resonant, Vessicular Breath Sounds. No: Crackles, Wheezes Heart Rate and Rhythm: Regular JVP: Not Elevated Additional Cardiovascular: Yes: Normal Heart Sounds. No: Heart Murmur, Pedal Edema Abdominal Exam: Yes: Soft. No: Distention, Abdominal Tenderness Results - Results Lab Results: Laboratory Results - last 24 hr 08/15/18 08/16/18 08/16/18 21:48 11:29 18:04 WBC RBC Hgb Hct MCV MCH MCHC RDW Plt Count MPV Neut % (Auto) Lymph % (Auto) Roberts % (Auto) Eos % (Auto) Baso % (Auto) Absolute Neuts (auto) Absolute Lymphs (auto) Absolute Monos (auto) Absolute Eos (auto) Absolute Basos (auto) Absolute Nucleated RBC Nucleated RBC % Sodium Potassium Chloride Carbon Dioxide Anion Gap BUN Creatinine Est GFR ( Amer) Est GFR (Non-Af Amer) BUN/Creatinine Ratio Glucose POC Glucose (mg/dL) 125 H 290 H 163 H Calcium C-Reactive Protein 08/16/18 08/17/18 08/17/18 21:28 04:51 04:51 WBC 9.7 RBC 3.55 L Hgb 10.8 L Hct 32 L MCV 89 MCH 30 MCHC 34 RDW 14 Plt Count 174 MPV 8.5 Neut % (Auto) 81.1 Lymph % (Auto) 9.8 Roberts % (Auto) 8.0 Eos % (Auto) 0.5 Baso % (Auto) 0.6 Absolute Neuts (auto) 7.8 H Absolute Lymphs (auto) 1.0 Absolute Monos (auto) 0.8 Absolute Eos (auto) 0.1 Absolute Basos (auto) 0.1 Absolute Nucleated RBC 0 Nucleated RBC % 0 Sodium 138 Potassium 3.5 Chloride 106 Carbon Dioxide 26 Anion Gap 6 BUN 22 Creatinine 1.94 H Est GFR ( Amer) 41.6 Est GFR (Non-Af Amer) 34.4 BUN/Creatinine Ratio 11.3 Glucose 62 L POC Glucose (mg/dL) 114 H Calcium 9.2 C-Reactive Protein 163.29 H Assessment - Problem List Assessment: Patient Problems Acute on chronic renal failure (Acute) Acute prostatitis (Acute) Fever (Acute) Obstructive uropathy (Acute) Primary prostate adenocarcinoma (Acute) SIRS (systemic inflammatory response syndrome) (Acute) UTI (urinary tract infection) (Acute) Uncontrolled type 1 diabetes mellitus (Acute) ADHD (attention deficit hyperactivity disorder) (Chronic) Androgen deficiency (Chronic) Background diabetic retinopathy (Chronic) Controlled depression (Chronic) Hyperlipidemia (Chronic) Insulin pump in place (Chronic) Overweight (BMI 25.0-29.9) (Chronic) PVD (peripheral vascular disease) (Chronic) 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) Renal cancer (Chronic) Stage 3 chronic kidney disease (Chronic) Type I diabetes mellitus (Chronic) Plan: Sepsis/Acute prostatis/UTI - He is clinically improved. The urine culture grew E. coli sensitive to all antibacterials aside from ampicillin. The ESMER for levofloxaciin is 1.0. I will start him on levofloxacin 750 mg every 48 hrs per eGFR. T1D - controlled Prostate carcinoma/obstructive uropathy - He will maintain his Heath and consider a prostatectomy
[2018-08-17] MEDS ORDERED: Levofloxacin TAB* 750 MG PO ONE (09:00)
[2018-08-17] MEDS: CMCS: Sitagliptin (NF) 50 MG TAB PO SCH (09:27)
[2018-08-17] MEDS: Diltiazem CD CAP* 240 MG PO SCH (09:27)
[2018-08-17] MEDS: BuPROPion XL* 300 MG TAB.XL PO SCH (09:27)
[2018-08-17] MEDS: Hydrochlorothiazide TAB* 25 MG PO SCH (09:27)
--- NOTE | 2018-08-19 05:52 | DS ---
CC: Dr. Elijah Betancourt; Dr. Dominguez Inman * DISCHARGE SUMMARY: DATE OF ADMISSION: 08/15/18 DATE OF DISCHARGE: 08/17/18 DISCHARGE DIAGNOSES: 1. Sepsis secondary to Escherichia coli, prostatitis, and urinary tract infection. 2. Obstructive uropathy. COMORBIDITIES: 1. Acute on chronic renal insufficiency. 2. Type 1 diabetes mellitus, uncontrolled. SECONDARY DIAGNOSES: 1. History of nephrectomy for renal cell carcinoma. 2. Type 1 diabetes mellitus with nephropathy and proteinuria. 3. Peripheral neuropathy. 4. Diabetic retinopathy. 5. Insulin pump user. 6. Androgen deficiency. 7. Depression. 8. Hyperlipidemia. 9. Overweight. 10. Peripheral arterial disease. HISTORY: Stefan Crabtree is a 72-year-old white male. He has longstanding type 1 diabetes mellitus with chronic poor control. This is complicated by retinopathy, nephropathy, and peripheral neuropathy. He has a history of renal cell carcinoma and has just 1 kidney. He has longstanding diabetic nephropathy with stage 3 renal disease and proteinuria. Recently, he has had worsening of his renal function. He underwent investigation for this which led to the discovery of an elevated PSA. He underwent a prostatic biopsy on 08/10/[address] Betancourt which was covered by antibacterial management. Subsequently, he developed fever, weakness, dysuria; came to the emergency room where he was found to be septic and to have a urinary tract infection. His presentation is documented in Dr. Adriana Peña's admission notes. In the emergency room, T-max was 99.7, blood pressure 163/60, pulse was 80, respirations 16. Examination showed a clear chest. Cardiovascular system was normal. Abdomen: No tenderness, distention, obese. INITIAL INVESTIGATIONS: White count 15.1, hemoglobin 12.4, hematocrit 37, platelets 198, neutrophil percent 83.7. Chemistry: Sodium 128, potassium 3.5, chloride 92, bicarbonate 27, anion gap 9, BUN 3.1, creatinine 2.17, eGFR of 30.2 , glucose 340, lactate 1.2. Normal LFTs. Initial impression shows UTI, type 1 diabetes out of control. CONSULTATIONS: On 08/15/18, he was seen by Dr. Elijah Betancourt whose impressions are part of his electronic medical record. He noted acute prostatitis, use of an appropriate antibiotic; he had been started on piperacillin-tazobactam to ___ __ both anaerobic and aerobic bacteria in view of the procedure. He noted that there was 1000 mL of residual volume in his bladder and placed a Heath catheter. He increased his dose of tamsulosin to 0.8 mg. He noted the prostatic carcinoma on the biopsy and thought that a radical prostatectomy was the likely best management plan. INVESTIGATIONS: Microbiology: E. coli grew from his urine, sensitive to all antibiotics except for ampicillin. LABORATORY DATA: His white count came down to 9.7, percent neutrophils to 81.1. CRP on 08/16/18 was 176 and on 08/17/18 was 163.29. HOSPITAL COURSE: He went into urination retention and had a Heath catheter placed. He had rapid control of his fever with the IV antibiotics. On the day of discharge, he was feeling better, his appetite was restored and he had no fevers or sweats for 24 hours. He was tolerating the Heath catheter. He was managing his own diabetes using his insulin pump and his blood sugar had come under control. REVIEW OF SYSTEMS: Cardiovascular System: No chest pain, shortness of breath, palpitations, or ankle swelling. Respiratory System: No cough or sputum. Gastrointestinal System: He had no indigestion, nausea, or vomiting. He had had a bowel movement. Nervous System: No headache or weakness. PHYSICAL EXAMINATION ON THE DAY OF DISCHARGE: Temperature 99.2, pulse 80, respirations 18, blood pressure 177/57, oxygen saturation 98% on room air. Warm and well-perfused. No cyanosis, jaundice, clubbing, or adenopathy. His chest was clear. Heart sounds were normal. Abdominal Examination: No distention, masses, tenderness, or organomegaly. Bowel sounds present. He was alert and oriented and able to walk independently. INVESTIGATIONS ON THE DAY OF DISCHARGE: Sodium 138, potassium 3.5, chloride 106 , bicarbonate 26, anion gap 6, BUN 22, creatinine 1.94, eGFR of 34.4, glucose was 62, CRP 163. ASSESSMENT AND PLAN: 1. Sepsis, acute prostatitis, urinary tract infection, obstructive uropathy. In discussion with Dr. Elijah Betancourt, I changed him to levofloxacin 750 mg every other day. He has an indwelling Heath catheter in situ. He has received training on how to use this as an outpatient. He no longer has any signs of sepsis and is feeling well at the day of discharge. 2. Acute on chronic renal insufficiency. This is improving as there was a component that was obstructive. 3. Adenocarcinoma of the prostate. This will require addressing as an outpatient once he is completely treated for his infection. I have started a preliminary discussion of the different forms of prostatic surgery versus the different forms of radiotherapy. He will also discuss this with Dr. Betancourt. 4. Type 1 diabetes mellitus, with insulin pump. He is managing his own blood glucose and will resume his basal bolus regimen. 5. Hypertension. We will manage this as an outpatient. 6. Other secondary diagnoses which include diabetic nephropathy, background diabetic retinopathy, peripheral neuropathy, peripheral vascular disease, and hyperlipidemia. We will manage these as usual. DISCHARGE MEDICATIONS: 1. Levofloxacin 750 mg every other day for 3 weeks. 2. Tamsulosin 0.8 mg daily. 3. Bupropion XL 300 mg daily. 4. Atorvastatin 40 mg daily. 5. Geodon 60 mg every day. 6. Lispro insulin pump, usual basal rates. 7. Sitagliptin 50 mg daily. 8. Hydrochlorothiazide 25 mg daily. 9. Diltiazem 240 mg daily. 10. Methylphenidate 20 mg 4 times a day as needed. I have stopped his testosterone treatment. He has an office visit with me following his discharge and also with Dr. Betancourt. [id number]/[facility] #: [id number] JUANA
== END 2018-08-17 09:50 | disposition home or self-care (01) | DRG 872 ==
LOC: ED 18:35 → SSU 08-15 00:01
PROVIDERS: ADMIT Internal Medicine; ATTEND Internal Medicine
PROC: 0T9B70Z Drainage of Bladder with Drainage Device, Via Natural or Artificial Opening (ICD-10-PCS; principal; 2018-08-15)
DX: A41.51 Sepsis due to Escherichia coli [E. coli] (principal); N39.0 Urinary tract infection, site not specified; N17.9 Acute kidney failure, unspecified; N41.0 Acute prostatitis; N13.8 Other obstructive and reflux uropathy; E10.22 Type 1 diabetes mellitus with diabetic chronic kidney disease; E10.21 Type 1 diabetes mellitus with diabetic nephropathy; E10.42 Type 1 diabetes mellitus with diabetic polyneuropathy; E10.65 Type 1 diabetes mellitus with hyperglycemia; E10.319 Type 1 diabetes mellitus with unspecified diabetic retinopathy without macular edema; C61 Malignant neoplasm of prostate; N18.3 Chronic kidney disease, stage 3 (moderate); B96.20 Unspecified Escherichia coli [E. coli] as the cause of diseases classified elsewhere; I12.9 Hypertensive chronic kidney disease with stage 1 through stage 4 chronic kidney disease, or unspecified chronic kidney disease; Z96.41 Presence of insulin pump (external) (internal); R33.8 Other retention of urine; E29.1 Testicular hypofunction; F90.9 Attention-deficit hyperactivity disorder, unspecified type; E66.9 Obesity, unspecified; N40.1 Benign prostatic hyperplasia with lower urinary tract symptoms; R80.9 Proteinuria, unspecified; F32.9 Major depressive disorder, single episode, unspecified; E78.5 Hyperlipidemia, unspecified; Z96.643 Presence of artificial hip joint, bilateral; Z68.29 Body mass index [BMI] 29.0-29.9, adult; Z79.4 Long term (current) use of insulin; Z85.53 Personal history of malignant neoplasm of renal pelvis; Z90.5 Acquired absence of kidney; Z80.42 Family history of malignant neoplasm of prostate; Z87.891 Personal history of nicotine dependence; Z79.01 Long term (current) use of anticoagulants; Z79.899 Other long term (current) drug therapy
CPT/HCPCS: 36415; 80048; 80053; 80061; 81003; 81015; 83036; 83605; 84300; 85025; 85610; 85730; 86140; 87040; 87077; 87086; 87186; 87641; 90686; 99285; A9270-GY; J1644; J2543

== ENCOUNTER 2021-10-23 05:45 | Observation (INO) ==
[~2021-10-23 05:45] MED LIST changes: -Acetaminophen TAB* 325 MG PO PRN; +Buffered Lidocaine 1% SYRIN 1 ml INTRADERM ONE; -Buffered Lidocaine 1% SYRIN* 5 ML/SYR SYRINGE INTRADERM ONE; +DiMENhydriNATE IV 50 mg/ml 1 ml VIAL IV PUSH ONE; +HYDROcodone/ACETAMIN 5/325 mg TAB PO PRN; +Lactated Ringers 1000 ml BAG 1,000 ML IV SCH; +Metoclopramide 5 MG/ML VIAL (10 mg) IV PRN; +Naloxone 0.4 mg VIAL 0.4 mg/ml 1 ml VIAL IV PRN; +Ondansetron 4 mg VIAL 2 MG/ML 2 ml VIAL IV PRN; +fentaNYL 100 mcg/2 ml 50 MCG/ML VIAL IV PRN
[2021-10-23] MEDS ORDERED: DiMENhydriNATE IV 50 mg/ml 1 ml VIAL ONE (06:08)
[2021-10-23] MEDS ORDERED: ceFAZolin 2 GM in NS PREMIX 2 GM/100 ML BAG IVPB ONE (06:22)
[2021-10-23] MEDS ORDERED: ceFAZolin VIAL VIAL ONE (06:59)
[2021-10-23] MEDS ORDERED: Bupivacaine 0.5% SDV PF 30ML VIAL ONE (07:00)
[2021-10-23] MEDS ORDERED: Rocuronium 50 mg VIAL 10 mg/ml 5 ml VIAL (50 mg) ONE (07:01)
[2021-10-23] MEDS ORDERED: Midazolam 2 mg/2 ml VIAL 1 mg/ml 2 ml VIAL (2 mg) ONE (07:01)
[2021-10-23] MEDS ORDERED: Lidocaine 2% PF 5 ML VIAL ONE (07:01)
[2021-10-23] MEDS ORDERED: Dexamethasone IV 4 MG/ML VIAL 1 ml VIAL ONE (07:01)
[2021-10-23] MEDS ORDERED: Ondansetron 4 mg VIAL 2 MG/ML 2 ml VIAL ONE (07:01)
[2021-10-23] MEDS ORDERED: Propofol 10 MG/ML 20 ML BTL ONE (07:01)
[2021-10-23] MEDS ORDERED: fentaNYL 250 mcg/5 ml 50 MCG/ML 5 ml VIAL (250 MCG) ONE (07:01)
[2021-10-23] MEDS ORDERED: BUPIVACAINE **LIPOSOME/PF 13.3 MG/ML (266MG/ 20ML) VIAL (RESTRICTED) INFIL ONE (08:00)
[2021-10-23] MEDS ORDERED: Phenylephrine 40 mcg/mL 10mL (400mcg) SYRINGE ONE (08:31)
[2021-10-23] MEDS ORDERED: EPHEDrine (Pressors) 50 MG/ML VIAL ONE (08:53)
[2021-10-23] MEDS ORDERED: Phenylephrine IV 10 MG/ML 1 ml VIAL ONE (09:25)
[2021-10-23] MEDS ORDERED: HYDROcodone/ACETAMIN 5/325 mg TAB PO PRN (12:32)
[2021-10-23] MEDS: HYDROcodone/ACETAMIN 5/325 mg TAB PO PRN ×2 (13:17→19:35)
[2021-10-23 14:28] LABS: HIV 4th Generation Nonreactive (Nonreactive)
[2021-10-23 15:58] LABS: Hepatitis B Surface Antigen Nonreactive (Nonreactive)
[2021-10-23 16:16] LABS: Hepatitis C Antibody Negative (Negative)
[2021-10-23] MEDS: DULoxetine DR 30 mg CAP PO SCH (21:23)
[2021-10-24] MEDS: HYDROcodone/ACETAMIN 5/325 mg TAB PO PRN ×3 (03:31→12:09)
[2021-10-24] MEDS: DULoxetine DR 30 mg CAP PO SCH (07:37)
[2021-10-24 11:41] VITALS: BP 158/68
== END 2021-10-24 13:10 | disposition home or self-care (01) ==
LOC: SSU 05:45 → OR 05:45
PROVIDERS: ADMIT Neurological Surgery; ATTEND Neurological Surgery